=== PATIENT | male | born 1935 | race Caucasian/White ===

== ENCOUNTER 2022-02-19 20:57 | Observation (INO) | payer MEDICARE, SELFPAY ==
[2022-02-19 20:59] VITALS: BP 165/88; PULSE 98; RESP 16; TEMP 37.2; O2SAT 97; BMI 23.1
[2022-02-19] MEDS: Morphine 2 MG/ML Syringe IV (21:44)
[2022-02-19 21:54] LABS: Absolute Lymphocyte Count 0.99 X10^3/uL (0.83-4.51); Absolute Neutrophil Count 9.9 X10^3/uL (2.0-7.7); Basophil# 0.03 X10^3/uL; Basophil% 0.3 % (0-1); Hematocrit 37.4 % (40-54); Hemoglobin 12.7 g/dL (13.0-16.5); Lymphocyte # 0.99 X10^3/ul (0.83-4.51); Lymphocyte % 8.3 % (19-41); Mean Corpuscular Hgb 32.3 pg (27.0-32.0); Mean Corpuscular Volume 95.2 fL (80-94); Mean Platelet Vol. 9.4 fl (6.2-12.0); Monocyte# 0.98 X10^3/uL; Monocyte% 8.2 % (0-10); NRBC Flagged by Analyzer 0 % (0-5); Neutrophil # 9.94 X10^3/uL (2.7-7.7); Neutrophil % 82.7 % (47-70); Platelet Count 255 K/mm3 (150-450); RBC Distribution Width CV 13.2 % (11.6-14.6); RBC Distribution Width SD 46.3 fl (35.1-43.9); Red Blood Count 3.93 M/mm3 (4.6-6.2)
[2022-02-19 22:07] LABS: Anion Gap 5 (5-15); BUN 23 mg/dL (7-18); BUN/Creat Ratio 28.2 RATIO (10-20); Chloride 103 mmol/L (98-107); Creatinine, Serum 0.82 mg/dL (0.70-1.30); EST Glomerular Filtration Rate 95 mL/min (>60); Est Glom Filt Rate - Afr Amer 115 mL/min (>60); Estimated Creatinine Clearance 63.72 ml/min; Glucose 144 mg/dL (74-106); Potassium 3.8 mmol/L (3.5-5.1); Sodium Level 137 mmol/L (136-145)
--- NOTE | 2022-02-19 22:10 | RAD_ITS ---
EXAM: XR LEFT HIP WITH PELVIS WHEN PERFORMED, 2 OR 3 VIEWS CLINICAL INDICATION: injury/fall TECHNIQUE: Two or three views of the left hip with pelvis when performed. This report was created using [employer] report [employer] technology. COMPARISON: None. FINDINGS: BONES/JOINTS: Slight angulation at the superior head neck junction of the left hip. Mild degenerative changes of the hips bilaterally. Marked degenerative changes in the lumbar spine. No displaced fracture. No destructive or sclerotic lesions. Note that overlapping bowel shadows may however obscure fine detail. Sacroiliac joint is unremarkable. No widening of the pubic symphysis. SOFT TISSUES: Unremarkable. No soft tissue swelling or gas. RAD/HIP, UNI W/ Pelvis 2-3 Views IMPRESSION: 1. Slight angulation at the superior head neck junction of the left hip. I cannot exclude an impacted fracture. Consider CT. 2. Mild degenerative changes of the hips bilaterally. Electronically Signed: Kevin Rae MD at 22:53 EDT ,
[2022-02-19 23:00] VITALS: BP 171/89; PULSE 91; RESP 20; O2SAT 93
[2022-02-20] VITALS (12 sets, daily range): BP systolic 130–180; BP diastolic 63–88; PULSE 81–132; RESP 16–20; TEMP 36.6–38.2; O2SAT 93–98; BMI 20.8
--- NOTE | 2022-02-20 00:03 | CT_ITS ---
EXAM: CT LEFT LOWER EXTREMITY WITHOUT INTRAVENOUS CONTRAST CLINICAL INDICATION: L hip injury, abn XR TECHNIQUE: Helically acquired images were obtained of the left lower extremity without intravenous contrast. 2-D reformats were performed by the technologist. This CT exam was performed using one or more of the following dose reduction techniques: automated exposure control, adjustment of the mA and/or kV according to patient size, and/or use of iterative reconstruction technique. This report was created using [employer] report generation technology. RADIATION DOSE: CTDIvol = 12.07 mGy, DLP = 379.71 mGy-cm. COMPARISON: None. FINDINGS: BONES/JOINTS: Nondisplaced left greater trochanter fracture. Preservation of the joint space. No sclerotic or destructive changes. SOFT TISSUES: Unremarkable. No soft tissue swelling or gas. No radiopaque foreign body. CT/Extremity Lower without Contra IMPRESSION: Nondisplaced left greater trochanter fracture. No definite femoral neck fracture. Electronically Signed: Kevin Rae MD at 0:40 EDT ,
--- NOTE | 2022-02-20 01:06 | HP.PCM.HOS_ITS ---
HPI - General General Date of Admission: 02/20/22 Date of Service: 02/20/22 Chief Complaint: Fall HPI Narrative SABINE CISSE, is a 86 M with a significant medical history of microcytic anemia and osteoarthritis who presents to the emergency department with a fall. Reportedly patient was too weak so he fell on his left hip. His son helped patient get up from the floor after the fall. At baseline patient uses a walker for mobility. After the fall he was able to get around but at the day progressed he had excruciating pain as so he could not walk. Paramedics were called and patient was brought to the emergency department. [facility] Medical History (Updated 02/20/22 @ 01:[address] Luis Miguel Rodas MD) Microcytic anemia Osteoarthritis Medical History no medical history Home Medications NK 02/19/22 [History Last Taken Unknown] Allergy/AdvReac Type Severity Reaction Status Date / Time No Known Allergies Allergy Verified 10/08/13 23:26 Family History (Updated 02/20/22 @ 01:[address] Luis Miguel Rodas MD) Other Heart disease Surgical History H/O hernia repair History of prostate surgery Social History Smoking Status: Never smoker ROS ROS Narrative Pertinent positives and pertinent negatives as noted in HPI. All other systems were reviewed and are negative. Vital Signs Vital Signs Vital Signs: 02/19/22 20:59 02/19/22 21:05 02/19/22 23:00 Temperature 99.0 F Temperature Source Oral Pulse Rate 98 91 Respiratory Rate 16 20 H Respiratory Effort Normal Non-Labored Respiratory Depth Normal Respiratory Pattern Normal Blood Pressure 165/88 H 171/89 H Blood Pressure Mean 113 116 Pulse Ox 97 93 Oxygen Delivery Method Room Air Room Air Room Air Weight Weight: 68.8 kg Body Mass Index (BMI) 23.1 Physical Exam Narrative Physical exam: General: Well-nourished, well-developed. Head: Normocephalic, atraumatic, no tenderness Eyes: Vision is grossly intact. EOMI ENT, no trauma, moist mucous membranes, no rhinorrhea Neck: Nontender, full range of motion, no spinal tenderness, deformities, step- off CVS: Regular rate and rhythm. S1-S2 present. No murmur, gallop or rub. Respiratory : clear to auscultation bilaterally, chest wall nontender, no wheezing Abdomen: Soft, nontender, nondistended, normal bowel sounds, no masses : Deferred Back: Nontender, no CVA tenderness, no midline spinal tenderness, deformities, step-offs Extremities: Nontender right hip. Tender left hip. Good strength in the right hip. Left hip strength not tested secondary to fracture. Skin: Normal color, no trauma, abrasions Neuro: Alert, oriented, cranial nerves II through XII grossly intact. Psychiatry: Normal mood. Normal affect. Not depressed. Not anxious. Results Medical Records Data Attestation: I reviewed the patient's medical records Lab / Micro Data Attestation: I reviewed the patient's lab results. Result Diagrams: 02/19/22 21:45 02/19/22 21:45 Labs: Laboratory Results - last 24 hr 02/19/22 21:45: WBC 12.0 H, RBC 3.93 L, Hgb 12.7 L, Hct 37.4 L, MCV 95.2 H, MCH 32.3 H, MCHC 34.0, RDW Std Deviation 46.3 H, RDW Coeff of Krunal 13.2, Plt Count 255, MPV 9.4, Immature Gran % (Auto) 0.500, Neut % (Auto) 82.7 H, Lymph % (Auto) 8.3 L, [place]idan % (Auto) 8.2, Eos % (Auto) 0.0, Baso % (Auto) 0.3, Absolute Neuts (auto) 9.9 H, Absolute Lymphs (auto) 0.99, Nucleated RBC % 0 02/19/22 21:45: Sodium 137, Potassium 3.8, Chloride 103, Carbon Dioxide 29.0, Anion Gap 5, BUN 23 H, Creatinine 0.82, Estim Creat Clear Calc 63.72, Est GFR (MDRD) Af Amer 115, Est GFR (MDRD) Non-Af 95, BUN/Creatinine Ratio 28.2 H, Glucose 144 H, Calcium 9.0 Radiology Impression Hip/Pelvis X-Ray 02/19/22 22:10 IMPRESSION: 1. Slight angulation at the superior head neck junction of the left hip. I cannot exclude an impacted fracture. Consider CT. 2. Mild degenerative changes of the hips bilaterally. Electronically Signed: Kevin Rae MD at 22:53 EDT , Lower Extremity CT 02/20/22 00:03 IMPRESSION: Nondisplaced left greater trochanter fracture. No definite femoral neck fracture. Electronically Signed: Kevin Rae MD at 0:40 EDT , Assessment & Plan Assessment/Plan (1) Hip fracture, left: (2) Greater trochanter fracture: (3) Elevated blood pressure reading without diagnosis of hypertension: PLAN: Plan Greater trochanteric fracture of left hip. Hip and pelvis x-ray radiologist interpretation as above. Lower extremity CT was visualized and independently interpreted and I agree with radiologist interpretation of nondisplaced left greater trochanteric fracture with no definite femoral neck fracture. Emergency plan doctor discussed the case with Dr. Cesar Ureña, orthopedic surgeon who reportedly recommended that MRI of left hip be obtained. If MRI is negative no need to consult orthopedic surgeon for recommendations. Partial weightbearing as tolerated and therapy. MRI left hip ordered. For now no weightbearing on left hip. PT and OT to work with patient. Case management consult for disposition. Pain control with as needed acetaminophen, oxycodone, and IV morphine. Bowel protocol and antiemetics in place. Mild leukocytosis of 12.0; chronic anemia with hemoglobin of 12.7 which is actually improved from previous. Trend CBC. Check vitamin B12 and vitamin D. Elevated blood pressure without diagnosis of hypertension May be secondary to pain. However cannot rule out baseline hypertension. Treat pain. Trend blood pressures. DVT prophylaxis: Subcutaneous Lovenox ordered. Charges/Coding Visit Charges OBSV E&M: 54208 Initial observation care L3
--- NOTE | 2022-02-20 01:14 | EDS_ITS ---
HPI HPI - Fall History of Present Illness Chief Complaint: Fall Informant: patient and family Occured/Mechanism Occurred: Today Mechanism/Context: Yes same level fall and Yes trip Narrative: Patient thinks he tripped using his walker earlier today Usually ambulates: Walker Pain/Injury Location: Left hip Quality of Pain: Aching Current Severity: Mild Maximum Severity: Severe Worsened by: Trying to weight-bear Relieved by: Resting and remaining still Associated Symptoms Associated Symptoms: Positive for Inability to ambulate; Negative for Parasthesias, Weakness or Loss of consciousness Narrative Narrative: Patient fell at home using his walker. He states initially he was able to get up and stand and walk to the bathroom, but shortly thereafter he was no longer able to because of the pain in his left hip. He denies any other injury or hitting his head. He takes no medications at home. [facility] Medical History (Updated 02/20/22 @ 01:[address] David Melgar MD) Microcytic anemia Osteoarthritis Medical History no medical history Home Medications NK 02/19/22 [History Last Taken Unknown] Allergy/AdvReac Type Severity Reaction Status Date / Time No Known Allergies Allergy Verified 10/08/13 23:26 Surgical History (Updated 02/19/22 @ 21:04 by Kylah Rao) H/O hernia repair Social History Smoking Status: Never smoker ROS ROS ED Constitutional Constitutional ED: Denies chills or fever(s) Eyes Eyes: Denies change in vision or diplopia ENT ENT ED: Denies rhinorrhea or sore throat Cardiovascular Cardiovascular: Denies chest pain or palpitations Respiratory/Chest Respiratory/Chest: Denies cough or dyspnea Gastrointestinal Gastrointestinal: Denies abdominal pain, diarrhea, nausea or vomiting Genitourinary Genitourinary ED: Denies dysuria or hematuria Musculoskeletal Musculoskeletal: Reports extremity pain; Denies back pain or neck pain Integumentary Denies abscess or rash Neurologic Neurologic: Denies headache(s), paresthesias or weakness Psychiatric Psychiatric: Denies anxiety or suicidal thoughts EXAM Physical Exam Const Vital Signs: 02/19/22 20:59 02/19/22 21:05 02/19/22 23:00 Temperature 99.0 F Temperature Source Oral Pulse Rate 98 91 Respiratory Rate 16 20 H Respiratory Effort Normal Non-Labored Respiratory Depth Normal Respiratory Pattern Normal Blood Pressure 165/88 H 171/89 H Blood Pressure Mean 113 116 Pulse Ox 97 93 Oxygen Delivery Method Room Air Room Air Room Air Positive well nourished and well developed General Appearance ED: well developed and NAD HEENT Reports moist mucous membranes normocephalic and atraumatic Eyes PERRL and EOMs intact bilaterally Neck full ROM and supple Resp normal respiratory effort and clear to auscultation bilaterally Cardio regular rate, regular rhythm and no murmurs GI non-tender and non-distended Auscultation: normoactive bowel sounds Palpation: soft Back/Spine no CVA tenderness General Back: other FROM Extremity normal to inspection Extremity Narrative: Patient very tender at the left greater trochanter, significant pain with any range of motion involving the left hip. No deformities. Nontender throughout the rest of the femur and knee rest of his extremities are nontender with full range of motion. He does have some limited range of motion of the right knee due to some arthritis but he is able to range it. General Extremety ED: Yes tenderness; Negative for edema or pulses abnormal General Extremity: Negative for edema or pulses abnormal Neuro oriented x3, CN's II-XII intact bilaterally and no sensory deficits noted Sensorium / Orientation: awake and alert Motor Exam: strength 5/5 throughout Psych mental status grossly normal and thought process normal Skin no rashes or lesions noted and no wounds MDM MDM MDM Narrative Medical decision making narrative: High suspicion for hip fracture here. X-rays initially 3 views my interpretat ion appears show a crack through the greater trochanter, difficult to tell if the femoral head also has a fracture or not. Radiology recommended a CT because they agreed it was difficult to tell. CT appears to show a nondisplaced left greater trochanter fracture only. Patient is unable to bear weight on his left lower extremity or walk and will require admission. I discussed with Dr. Cesar Ureña who was on for orthopedics, he advised that if he simply has a greater trochanter fracture only, then it is partial weightbearing as tolerated with outpatient follow-up in a week or 2, and if he is unable to weight-bear, an MRI would be reasonable in order to rule out other fracture in the area such as a femoral neck or intertrochanteric, which could be surgical and then consultation would be appropriate inpatient. Discussed with hospitalist for admission. Patient was given pain medication and he was resting comfortably throughout the visit. Lab Data Attestation: I reviewed the patient's lab results. Labs: Laboratory Results - last 24 hr 02/19/22 02/19/22 21:45 21:45 WBC 12.0 H RBC 3.93 L Hgb 12.7 L Hct 37.4 L MCV 95.2 H MCH 32.3 H MCHC 34.0 RDW Std Deviation 46.3 H RDW Coeff of Krunal 13.2 Plt Count 255 MPV 9.4 Immature Gran % (Auto) 0.500 Neut % (Auto) 82.7 H Lymph % (Auto) 8.3 L [place] % (Auto) 8.2 Eos % (Auto) 0.0 Baso % (Auto) 0.3 Absolute Neuts (auto) 9.9 H Absolute Lymphs (auto) 0.99 Nucleated RBC % 0 Sodium 137 Potassium 3.8 Chloride 103 Carbon Dioxide 29.0 Anion Gap 5 BUN 23 H Creatinine 0.82 Estim Creat Clear Calc 63.72 Est GFR (MDRD) Af Amer 115 Est GFR (MDRD) Non-Af 95 BUN/Creatinine Ratio 28.2 H Glucose 144 H Calcium 9.0 Radiography Diagnostic Testing: Clinical Impression(s) from Imaging Studies Hip/Pelvis X-Ray 02/19/22 22:10 IMPRESSION: 1. Slight angulation at the superior head neck junction of the left hip. I cannot exclude an impacted fracture. Consider CT. 2. Mild degenerative changes of the hips bilaterally. Electronically Signed: Kevin Rae MD at 22:53 EDT , Lower Extremity CT 02/20/22 00:03 IMPRESSION: Nondisplaced left greater trochanter fracture. No definite femoral neck fracture. Electronically Signed: Kevin Rae MD at 0:40 EDT , Discharge Plan Triage Chief Complaint: Fall ED Provider: David Melgar Dx/Rx/DC Orders Prescriptions: No Action NK Primary Care Provider: Care Physician,No Primary Referrals: Care Physician,No Primary [Primary Care Provider] - Disposition Disposition: Acute Care Hospital [facility]
--- NOTE | 2022-02-20 02:07 | MRI_ITS ---
HISTORY: Left hip fracture. TECHNIQUE: Multiplanar and multisequence MR images of the LEFT hip. IV Contrast Dosage and Agent: None. 233 images. COMPARISON: CT same day, XR prior day. FINDINGS: BONE: Comminuted and nondisplaced fracture of the right greater trochanter with mild subtrochanteric extension of surrounding bone marrow edema. Bone marrow edema also seen in the left lesser trochanter. Mild lumbar levocurvature. JOINT: Moderate degenerative changes of both hips.] No dislocation. Trace amount of joint fluid. TENDONS: Partial hamstring and iliopsoas tendon tears. SOFT TISSUES: Large amount of surrounding intramuscular and subcutaneous edema with gluteal musculotendinous tear, surrounding fluid and some retracted fibers. Mild bilateral iliacus muscular edema. Mild left adductor, groin, and proximal thigh intramuscular and subcutaneous changes edema. PELVIS: Mild presacral edema and fluid with edema extending into the left pelvic intramuscular soft tissues. Aggarwal catheter decompression of the bladder with a prominent wall. Enlarged prostate gland. Sigmoid diverticulosis. MRI/Lower Ext Joint Only (Routine) IMPRESSION: Nondisplaced fracture of the left greater trochanter with bone marrow contusion in the proximal left femur. Left gluteal musculotendinous tear with a large amount of intramuscular edema, fluid, and retracted tendon fibers. Left partial hamstring and iliopsoas tendon tears. Electronically Signed: Kaylah Chaudhary MD at 10:27 EDT ,
[2022-02-20] MEDS: Morphine 2 MG/ML Syringe IV ×4 (02:52→18:01)
[2022-02-20] MEDS: 0.9% Saline Lock 10 ML Syringe IV ×5 (02:52→18:01)
[2022-02-20 04:48] LABS: Absolute Lymphocyte Count 1.23 X10^3/uL (0.83-4.51); Absolute Neutrophil Count 7.7 X10^3/uL (2.0-7.7); Basophil# 0.03 X10^3/uL; Basophil% 0.3 % (0-1); Eosinophil# 0.03 X10^3/uL; Eosinophils% 0.3 % (0-5); Hematocrit 36.4 % (40-54); Hemoglobin 12.6 g/dL (13.0-16.5); Lymphocyte # 1.23 X10^3/ul (0.83-4.51); Lymphocyte % 12.5 % (19-41); Mean Corp Hgb Conc 34.6 g/dL (32-36); Mean Corpuscular Volume 95.3 fL (80-94); Mean Platelet Vol. 9.6 fl (6.2-12.0); Monocyte# 0.81 X10^3/uL; Monocyte% 8.2 % (0-10); NRBC Flagged by Analyzer 0 % (0-5); Neutrophil % 78.3 % (47-70); Platelet Count 240 K/mm3 (150-450); RBC Distribution Width CV 13.2 % (11.6-14.6); RBC Distribution Width SD 46.3 fl (35.1-43.9); Red Blood Count 3.82 M/mm3 (4.6-6.2); White Blood Count 9.8 K/mm3 (4.4-11.0)
--- NOTE | 2022-02-20 05:00 | EKG12_ITS ---
Test Reason : CHEST PRESSURE Blood Pressure : / mmHG Vent. Rate : 128 BPM Atrial Rate : 128 BPM P-R Int : 156 ms QRS Dur : 100 ms QT Int : 304 ms P-R-T Axes : 045 022 -31 degrees QTc Int : 443 ms Sinus tachycardia Inferior infarct , age undetermined ST & T wave abnormality, consider lateral ischemia Abnormal ECG When compared with ECG of 20-FEB-2022 05:37, MANUAL COMPARISON REQUIRED, DATA IS UNCONFIRMED Confirmed by JIMENA AL, WEST ([id number]), mapping editor SELAM FALL ([id number]) on 02/22/2022 12:58:24 PM Referred By: JENNIFER Confirmed By:WEST HESS MD
[2022-02-20 05:07] LABS: Anion Gap 6 (5-15); BUN 16 mg/dL (7-18); Calcium,Total 8.7 mg/dL (8.5-10.1); Chloride 104 mmol/L (98-107); Creatinine, Serum 0.62 mg/dL (0.70-1.30); EST Glomerular Filtration Rate 132 mL/min (>60); Est Glom Filt Rate - Afr Amer 160 mL/min (>60); Estimated Creatinine Clearance 47.57 ml/min; Glucose 131 mg/dL (74-106); Potassium 3.8 mmol/L (3.5-5.1); Sodium Level 139 mmol/L (136-145)
[2022-02-20 07:41] LABS: Vitamin B12 335 pg/mL (211-911); Vitamin D,25 Hydroxy 38.7 ng/mL
--- NOTE | 2022-02-20 07:59 | PN.HOSP_ITS ---
Subjective Subjective Patient is an 86-year-old gentleman brought to the hospital after falling. CT of the chest obtained demonstrated nondisplaced left greater trochanteric fracture with no definite femoral neck fracture. This was confirmed on an MRI. Admitted to regular nursing floor for further management Objective Data Objective Data Vital Signs: Vital Signs Temp Pulse Resp BP Pulse Ox O2 Del Method 98 F 94 18 153/88 H 93 Room Air 02/20/22 05:53 02/20/22 05:53 02/20/22 05:53 02/20/22 05:53 02/20/22 05:53 02/20/22 05:53 Oxygen Delivery Method Room Air Weight: 62.278 kg Body Mass Index (BMI) 20.8 Intake & Output: Intake and Output for Last 24 Hours 02/18/22 02/19/22 02/20/22 23:59 23:59 23:59 Output Total 650 / 650 Balance -650 / -650 Lab / Micro Data Result Diagrams: 02/20/22 04:19 02/20/22 04:19 Labs: Laboratory Results - last 24 hr 02/19/22 21:45: WBC 12.0 H, RBC 3.93 L, Hgb 12.7 L, Hct 37.4 L, MCV 95.2 H, MCH 32.3 H, MCHC 34.0, RDW Std Deviation 46.3 H, RDW Coeff of Krunal 13.2, Plt Count 255, MPV 9.4, Immature Gran % (Auto) 0.500, Neut % (Auto) 82.7 H, Lymph % (Auto) 8.3 L, [place] % (Auto) 8.2, Eos % (Auto) 0.0, Baso % (Auto) 0.3, Absolute Neuts (auto) 9.9 H, Absolute Lymphs (auto) 0.99, Nucleated RBC % 0 02/19/22 21:45: Sodium 137, Potassium 3.8, Chloride 103, Carbon Dioxide 29.0, Anion Gap 5, BUN 23 H, Creatinine 0.82, Estim Creat Clear Calc 63.72, Est GFR (MDRD) Af Amer 115, Est GFR (MDRD) Non-Af 95, BUN/Creatinine Ratio 28.2 H, Glucose 144 H, Calcium 9.0 02/20/22 04:19: WBC 9.8, RBC 3.82 L, Hgb 12.6 L, Hct 36.4 L, MCV 95.3 H, MCH 33.0 H, MCHC 34.6, RDW Std Deviation 46.3 H, RDW Coeff of Krunal 13.2, Plt Count 240, MPV 9.6, Immature Gran % (Auto) 0.400, Neut % (Auto) 78.3 H, Lymph % (Auto) 12.5 L, Preston % (Auto) 8.2, Eos % (Auto) 0.3, Baso % (Auto) 0.3, Absolute Neuts ( auto) 7.7, Absolute Lymphs (auto) 1.23, Nucleated RBC % 0 02/20/22 04:19: Sodium 139, Potassium 3.8, Chloride 104, Carbon Dioxide 29.0, Anion Gap 6, BUN 16, Creatinine 0.62 L, Estim Creat Clear Calc 47.57, Est GFR (MDRD) Af Amer 160, Est GFR (MDRD) Non-Af 132, BUN/Creatinine Ratio 26.0 H, Glucose 131 H, Calcium 8.7 02/20/22 04:19: Vitamin B12 335, Vitamin D 25-Hydroxy 38.7 02/20/22 04:19: Blood Type A POSITIVE, Antibody Screen NEGATIVE Radiography Diagnostic Testing: Radiology Impression Hip/Pelvis X-Ray 02/19/22 22:10 IMPRESSION: 1. Slight angulation at the superior head neck junction of the left hip. I cannot exclude an impacted fracture. Consider CT. 2. Mild degenerative changes of the hips bilaterally. Electronically Signed: Kevin Rae MD at 22:53 EDT Reading Location ID and State: [id number] [facility] Tel , Service support , Lower Extremity CT 02/20/22 00:03 IMPRESSION: Nondisplaced left greater trochanter fracture. No definite femoral neck fracture. Electronically Signed: Kevin Rae MD at 0:40 EDT , Physical Exam Narrative GENERAL: cooperative HEENT: Atraumatic; EYES; Anicteric, Normal Conjunctiva NECK; supple, normal thyroid, RESPIRATORY: Diminished to auscultation CARDIOVASCULAR: Regular S1 S2, GI: soft, normoactive bowel sounds, : No Renal angle tenderness; EXTREMITIES: No edema, no clubbing, MUSCULOSKELETAL: no muscle wasting NEURO: Awake; no lateralizing signs. SKIN: No Rash PSYCH; Flat affect Assessment & Plan Assessment/Plan (1) Hip fracture, left: (2) Greater trochanter fracture: (3) Elevated blood pressure reading without diagnosis of hypertension: PLAN: Plan Patient is an 86-year-old gentleman brought to the hospital after falling. CT of the chest obtained demonstrated nondisplaced left greater trochanteric f racture with no definite femoral neck fracture. This was confirmed on an MRI. Admitted to regular nursing floor for further management 1. Fall with nondisplaced left greater trochanteric fracture with no definitive femoral neck fracture ? Patient has been admitted to regular nursing floor. Case was discussed with Dr. Cesar Ureña by the ED physician prior to admission history recommendation was to repeat MRI and if it shows no displacement no Ortho consult warranted. Patient has been admitted to the regular nursing floor currently being managed with PT OT. Did update patient's son regarding the findings and recommendations from Dr. Cesar Ureña 2. Elevated blood pressure ? Possibly related to pain patient does not have any known diagnosis of hypertension 3. Mild leukocytosis ? Resolved 4. DVT prophylaxis ? SC Lovenox Total time spent evaluating patient review of initial diagnostic data coder operator orders as well as discussion with other providers involved in patient care nursing staff and patient signed; 45 minutes Charges/Coding Procedures Hospitalists Procedures: [id number] Prolonged InPt Service; first hour
[2022-02-20] MEDS: oxyCODONE 5 MG Tablet 10 MG PO ×2 (13:17→19:59)
[2022-02-20] MEDS: Enoxaparin 40 MG/0.4 ML Syringe SC (13:18)
--- NOTE | 2022-02-20 14:24 | CASEMGMT ---
MADDISON GARCIA Assessment: Face to Face with pt for initial transition planning/care coordination assessment. MADDISON GARCIA introduced self and role at [facility], pt voices understanding and consents to assessment. Unable to keep patient awake and answering questions. Asked pt if RN RADHA could call his , he states she will forget. Pt then did not answer any further questions and kept eyes closed. TC to pt number, number no longer in service. TC to pt son Tyrone listed. Tyrone asks RN CM to call his to get Moreno's, his brother's phone number. TC to his and she gave Marjocelyn's number. TC to Moreno, assessment completed per Moreno. Care providers, pharmacy, and demographics verified/updated. Admitting Dx: L greater trochanter fx PCP:Pt does not have PCP. Will provide local healthcare directory and leave on pt tray table. Moreno aware. Specialists:Pt does not have any. Preferred Pharmacy: [facility] Insurance: [employer] [facility] Prescription Benefit: yes LW/HPOA: Pt son denies pt having a LW/DPOA and denies need for info regarding AD. LNOK: Adrianne Mccallum, ; Tyrone Mccallum, son; Moreno Mccallum, son Living Arrangements: Pt lives with and son in a single story house with 2 steps to enter with a rail. Moreno states pt was I in ADL's prior to fall but was almost getting to the point of needing help. Transportation: Pt was driving up to a week ago. Pt son states he can provide transportation if need be in the future. DME/HHC/SNF: Per son, pt has a FWW that he uses in the home and a cane he uses outside of the home. Pt has not had any previous HHC or SNF stays. Moreno states pt does not take any medications. Pt son is the caregiver for pt and his who has s/t memory loss although he does work 5 days a week. He states after pt fell, he was hardly able to get the patient to the bathroom. He states he was thinking that pt could get some therapy for approx a week until he could hire cg in the home. Moreno was provided a list of SNF providers including quality and resource use data and consistent with the patient?s preferred geographic region, medical needs, and insurance network of patient. He states his mother has been to [facility] in the past and he thinks that is where he would like the patient to go. He states he would like to speak with his family regarding this. He is aware that therapy has not worked with patient yet but currently pt is needing 2 assist for pivoting. RN CM will check back with patient. Pt son states no further concerns/needs. Advised pt to ask CM if any further question/concerns/needs arise, voices understanding. Pt Goal: TBD Plan: TBD
--- NOTE | 2022-02-20 16:15 | CASEMGMT ---
Addendum entered by Merle Jerome 02/20/22 16:25: Received tc back from son, MADDISON Mayer CM explained LORENZO form, patient son voiced understanding. Pt son gave verbal consent for signature on form and filed in chart. Pt provided with a copy of signed LORENZO form in room. Patient son had no further questions or concerns at this time. Pt son did stated he has spoke with family and they picked [facility] TCU. Updated SW. SW also witnessed verbal consent on LORENZO form from son. Original Note: TC to pt son Moreno Fengtler, phone went straight to . MADDISON GARCIA needs to discuss LORENZO form with son as well as decision after him speaking with family. Left message with returned call info.
--- NOTE | 2022-02-20 16:25 | CASEMGMT ---
Social Work SW spoke with pts son Moreno who states he has spoke with his family and they feel pt would benefit from short term rehab stay in TCU prior to returning home. Referral made to [facility] in TCU. Will await determination of acceptance. Plan: TCU, pending acceptance and precert HUONG Mendosa
[2022-02-20] MEDS: hydrALAZINE 20 MG/ML Vial 10 MG IV (17:23)
--- NOTE | 2022-02-20 18:12 | EKG12_ITS ---
Test Reason : AM EKG Blood Pressure : / mmHG Vent. Rate : 094 BPM Atrial Rate : 094 BPM P-R Int : 176 ms QRS Dur : 100 ms QT Int : 354 ms P-R-T Axes : 057 037 028 degrees QTc Int : 442 ms Normal sinus rhythm Normal ECG When compared with ECG of 10-OCT-2013 07:07, Premature ventricular complexes are no longer Present Confirmed by JIMENA AL, WEST ([id number]), material expeditor SELAM FALL ([id number]) on 02/21/2022 11:14:10 AM Referred By: JENNIFER Confirmed By:WEST HESS MD
[2022-02-20 18:25] LABS: Bedside Glucose 123 mg/dL (74-106)
[2022-02-20] MEDS: Acetaminophen 325 MG Tablet 650 MG PO (19:03)
[2022-02-20 19:40] LABS: D-Dimer Quantitative (DVT/PE) 3.02 FEU/ug/m (0.27-0.49)
--- NOTE | 2022-02-20 20:17 | CT_ITS ---
EXAM: CT ANGIOGRAPHY CHEST WITHOUT AND WITH INTRAVENOUS CONTRAST CLINICAL INDICATION: elevated Ddimer TECHNIQUE: Helically acquired angiography images were obtained of the chest without and with intravenous contrast. This CT exam was performed using one or more of the following dose reduction techniques: automated exposure control, adjustment of the mA and/or kV according to patient size, and/or use of iterative reconstruction technique. This report was created using Pitzi report generation technology. MIP reconstructed images were created and reviewed. CONTRAST: IV 100mL Isovue-370 COMPARISON: None. FINDINGS: PULMONARY ARTERIES: Unremarkable. Normal in caliber. No evidence of pulmonary embolism. AORTA: Unremarkable. Normal in caliber. No evidence of dissection. GREAT VESSELS OF AORTIC ARCH: Unremarkable. Normal in caliber. No evidence of dissection. LUNGS AND PLEURAL SPACES: Unremarkable. No mass. No consolidation or edema. No pleural effusion or thickening. No pneumothorax. HEART: Unremarkable. Heart size is normal. No pericardial effusion. No signs of right heart strain, ratio of right ventricle to left ventricle measures less than 1. MEDIASTINUM: Moderate hiatal hernia. No mediastinal or hilar adenopathy. Esophagus is unremarkable. THYROID: Unremarkable. No thyroid lesions. BONES/JOINTS: Moderate osteoarthrosis of the shoulders. Right shoulder subluxation. Large right shoulder effusion. Left shoulder effusion. CT/CTA Chest W/WO Contrast IMPRESSION: No acute findings in the chest. Hiatal hernia. Bilateral shoulder osteoarthrosis and joint effusions. Electronically Signed: Vianney Gomez MD at 21:40 EDT Reading Location ID and State: [id number] / Tel , Service support ,
[2022-02-21 03:43] VITALS: BP 155/74; PULSE 103; RESP 18; TEMP 37.4; O2SAT 99
[2022-02-21] MEDS: Acetaminophen 325 MG Tablet 650 MG PO (03:50)
[2022-02-21] MEDS: oxyCODONE 5 MG Tablet 10 MG PO (03:50)
[2022-02-21 05:43] LABS: Absolute Lymphocyte Count 1.04 X10^3/uL (0.83-4.51); Basophil# 0.03 X10^3/uL; Basophil% 0.2 % (0-1); Hematocrit 37.8 % (40-54); Hemoglobin 12.9 g/dL (13.0-16.5); Lymphocyte # 1.04 X10^3/ul (0.83-4.51); Lymphocyte % 8.4 % (19-41); Mean Corp Hgb Conc 34.1 g/dL (32-36); Mean Corpuscular Hgb 32.4 pg (27.0-32.0); Mean Platelet Vol. 9.7 fl (6.2-12.0); Monocyte# 1.24 X10^3/uL; NRBC Flagged by Analyzer 0 % (0-5); Neutrophil # 10.04 X10^3/uL (2.7-7.7); Neutrophil % 80.8 % (47-70); Platelet Count 234 K/mm3 (150-450); RBC Distribution Width CV 13.5 % (11.6-14.6); RBC Distribution Width SD 47.3 fl (35.1-43.9); Red Blood Count 3.98 M/mm3 (4.6-6.2); White Blood Count 12.4 K/mm3 (4.4-11.0)
[2022-02-21 06:18] LABS: Anion Gap 6 (5-15); BUN 16 mg/dL (7-18); BUN/Creat Ratio 22.7 RATIO (10-20); Calcium,Total 8.5 mg/dL (8.5-10.1); Chloride 101 mmol/L (98-107); EST Glomerular Filtration Rate 113 mL/min (>60); Est Glom Filt Rate - Afr Amer 137 mL/min (>60); Estimated Creatinine Clearance 47.57 ml/min; Glucose 135 mg/dL (74-106); Potassium 3.7 mmol/L (3.5-5.1); Sodium Level 136 mmol/L (136-145)
[2022-02-21 07:25] VITALS: O2SAT 98
--- NOTE | 2022-02-21 07:26 | PCM.PN.HOSP ---
Subjective Subjective Patient was found to have elevated D-dimer the day prior CTA of the chest was negative for PE. He also had low-grade fever ordered viral respiratory panel as well as COVID 19 Objective Data Objective Data Vital Signs: Vital Signs Temp Pulse Resp BP Pulse Ox O2 Del Method O2 Flow Rate 99.3 F H 103 H 18 155/74 H 98 Nasal Cannula 2 02/21/22 03:43 02/21/22 03:43 02/21/22 03:43 02/21/22 03:43 02/21/22 07:25 02/21/22 07:25 02/21/22 07:25 Oxygen Flow Rate (L/min) 2 Oxygen Delivery Method Nasal Cannula Weight: 62.278 kg Body Mass Index (BMI) 20.8 Intake & Output: Intake and Output for Last 24 Hours 02/19/22 02/20/22 02/21/22 23:59 23:59 23:59 Intake Total 350 / 350 Output Total 1475 / 1475 250 / 250 Balance -1125 / -1125 -250 / -250 Lab / Micro Data Result Diagrams: 02/21/22 05:23 02/21/22 05:23 Labs: Laboratory Results - last 24 hr 02/20/22 04:19: Vitamin B12 335, Vitamin D 25-Hydroxy 38.7 02/20/22 18:08: POC Glucose 123 H 02/20/22 18:55: D-Dimer Quant (PE/DVT) 3.02 H* 02/21/22 05:23: WBC 12.4 H, RBC 3.98 L, Hgb 12.9 L, Hct 37.8 L, MCV 95.0 H, MCH 32.4 H, MCHC 34.1, RDW Std Deviation 47.3 H, RDW Coeff of Krunal 13.5, Plt Count 234, MPV 9.7, Immature Gran % (Auto) 0.600, Neut % (Auto) 80.8 H, Lymph % (Auto) 8.4 L, [place] % (Auto) 10.0, Eos % (Auto) 0.0, Baso % (Auto) 0.2, Absolute Neuts (auto) 10.0 H, Absolute Lymphs (auto) 1.04, Nucleated RBC % 0 02/21/22 05:23: Sodium 136, Potassium 3.7, Chloride 101, Carbon Dioxide 29.0, Anion Gap 6, BUN 16, Creatinine 0.70, Estim Creat Clear Calc 47.57, Est GFR (MDRD) Af Amer 137, Est GFR (MDRD) Non-Af 113, BUN/Creatinine Ratio 22.7 H, Glucose 135 H, Calcium 8.5 Radiography Diagnostic Testing: Radiology Impression Lower Extremity MRI 02/20/22 02:07 IMPRESSION: Nondisplaced fracture of the left greater trochanter with bone marrow contusion in the proximal left femur. Left gluteal musculotendinous tear with a large amount of intramuscular edema, fluid, and retracted tendon fibers. Left partial hamstring and iliopsoas tendon tears. Electronically Signed: Kaylah Chaudhary MD at 10:27 EDT , Chest CTA 02/20/22 20:17 IMPRESSION: No acute findings in the chest. Hiatal hernia. Bilateral shoulder osteoarthrosis and joint effusions. Electronically Signed: Vianney Gomez MD at 21:40 EDT , Physical Exam Narrative GENERAL: cooperative HEENT: Atraumatic; EYES; Anicteric, Normal Conjunctiva NECK; supple, normal thyroid, RESPIRATORY: Diminished to auscultation CARDIOVASCULAR: Regular S1 S2, GI: soft, normoactive bowel sounds, : No Renal angle tenderness; EXTREMITIES: No edema, no clubbing, MUSCULOSKELETAL: no muscle wasting NEURO: Awake; no lateralizing signs. SKIN: No Rash PSYCH; Flat affect Assessment & Plan Assessment/Plan (1) Hip fracture, left: (2) Greater trochanter fracture: (3) Elevated blood pressure reading without diagnosis of hypertension: PLAN: Plan Patient is an 86-year-old gentleman brought to the hospital after falling. CT of the chest obtained demonstrated nondisplaced left greater trochanteric fracture with no definite femoral neck fracture. This was confirmed on an MRI. Admitted to regular nursing floor for further management 1. Fall with nondisplaced left greater trochanteric fracture with no definitive femoral neck fracture ? Patient has been admitted to regular nursing floor. Case was discussed with Dr. Cesar Ureña by the ED physician prior to admission history recommendation was to repeat MRI and if it shows no displacement no Ortho consult warranted. Patient has been admitted to the regular nursing floor currently being managed with PT OT. Did update patient's son regarding the findings and recommendations from Dr. Cesar Ureña 2. Physical deconditioning - Requested for PT OT eval and clinical social worker to assist with discharge planning 3. Elevated blood pressure ? Possibly related to pain patient does not have any known diagnosis of hypertension ? 02/21/2022; patient started on metoprolol 25 mg p.o. twice daily 4. Mild leukocytosis ? Resolved 5. DVT prophylaxis ? GURINDER Gonsalez Charges/Coding Visit Charges OBSV E&M: 85338 Subsequent observation care L2
[2022-02-21 09:09] VITALS: O2SAT 85
[2022-02-21 09:13] VITALS: BP 143/73; PULSE 94; RESP 16; TEMP 37.3; O2SAT 100
[2022-02-21] MEDS: Enoxaparin 40 MG/0.4 ML Syringe SC (09:25)
--- NOTE | 2022-02-21 11:10 | CASEMGMT ---
Social Work SW spoke with [facility] in TCU and he has been accepted to TCU and precert has been started. MICHELLE will continue to follow for placement. HUONG Mendosa
[2022-02-21 11:30] VITALS: PULSE 94
[2022-02-21] MEDS: Metoprolol Tartrate 25 MG Tablet PO (11:30)
--- NOTE | 2022-02-21 13:36 | PCM.TXEXTCAR ---
Diet Diet Order/Speech Therapy: 02/20/22 02:07 Diet: Regular - General Food consistency:: Regular Liquid Consistency:: Regular/Thin Routine Orders/Code Status Code Status: DNRCC-A Wound(s) L elbow: Wound Type: Skin Tear Therapies Weight Bearing: Weight bearing as tolerated Occupational Therapy: Eval and Treat Speech Therapy: Eval and Treat Problem/Diagnosis (1) Hip fracture, left: Status: Acute Code(s): S72.002A - Fracture of unspecified part of neck of left femur, initial encounter for closed fracture (2) Greater trochanter fracture: Status: Acute Code(s): S72.113A - Displaced fracture of greater trochanter of unspecified femur, initial encounter for closed fracture (3) Elevated blood pressure reading without diagnosis of hypertension: Status: Acute Code(s): R03.0 - Elevated blood-pressure reading, without diagnosis of hypertension Plan Patient is an 86-year-old gentleman brought to the hospital after falling. CT of the chest obtained demonstrated nondisplaced left greater trochanteric fracture with no definite femoral neck fracture. This was confirmed on an MRI. Admitted to regular nursing floor for further management 1. Fall with nondisplaced left greater trochanteric fracture with no definitive femoral neck fracture ? Patient has been admitted to regular nursing floor. Case was discussed with Dr. Cesar Ureña by the ED physician prior to admission history recommendation was to repeat MRI and if it shows no displacement no Ortho consult warranted. Patient has been admitted to the regular nursing floor currently being managed with PT OT. Did update patient's son regarding the findings and recommendations from Dr. Cesar Ureña 2. Physical deconditioning - Requested for PT OT eval and high school social studies tutor to assist with discharge planning 3. Elevated blood pressure ? Possibly related to pain patient does not have any known diagnosis of hypertension ? 02/21/2022; patient started on metoprolol 25 mg p.o. twice daily 4. Mild leukocytosis ? Resolved 5. DVT prophylaxis ? SC Lovenox Allergies/Procedures Done in Hospital Allergies No Known Allergies Allergy (Verified 10/08/13 23:26) Type of Care/Length of Stay Estimated LOS: Convalescent Care Less Than 30 days Type of Care Needed: Skilled Rehab Potential: Good Prognosis: Good Additional Orders/Day of Discharge Day of Discharge: 02/21/22 Discharge Plan Admission Admit Date/Time: 02/20/22 00:56 Attending Provider: Tyrone Mixon Primary Care Provider: Care Physician,No Primary Consulting Providers: Luis Miguel Rodas ; Cesar Ureña Discharge Orders/Prescriptions Prescriptions: New sennosides-docusate sodium [Stool Softener-Stimulant Laxat] 8.6-50 mg Tablet 2 tab PO BID PRN PRN (Reason: Constipation) Qty: 0 0RF melatonin 3 mg Tablet 3 mg PO QHS PRN PRN (Reason: Insomnia) Qty: 0 0RF oxycodone 5 mg Tablet 5 mg PO Q4H PRN PRN (Reason: Pain Score 4-5) 2 Days Qty: 8 0RF metoprolol tartrate 25 mg Tablet 25 mg PO BID Qty: 0 0RF acetaminophen [Tylenol] 325 mg Tablet 650 mg PO Q6H PRN PRN (Reason: Pain Score 1-10/Temp > 100.7 F) Qty: 0 0RF enoxaparin 40 mg/0.4 mL Syringe 40 mg subcut DAILY 30 Days Qty: 0 0RF Referrals / Follow Up: Care Physician,No Primary [Primary Care Provider] -
--- NOTE | 2022-02-21 13:45 | DS.PCM_ITS ---
Providers Date of Admission: 02/20/22 Date of Discharge: 02/21/22 Primary Care Physician: Rizwana Primary Care Phys Consultations 02/20/22 11:43 Consult: Orthopedics Routine Consulting Provider: Cesar Ureña Reason for Consult: left greater trochanter fracture EMERGENT Consult: No MD Notified: Yes Date Notified: 02/20/22 Time Notified: 11:43 Method of Notification: spoke to by ER doc Reason For Visit: LEFT GREATER TROCHANTER FRACTURE Diagnosis Discharge Diagnosis (1) Hip fracture, left: Status: Acute Code(s): S72.002A - Fracture of unspecified part of neck of left femur, initial encounter for closed fracture (2) Greater trochanter fracture: Status: Acute Code(s): S72.113A - Displaced fracture of greater trochanter of unspecified femur, initial encounter for closed fracture (3) Elevated blood pressure reading without diagnosis of hypertension: Status: Acute Code(s): R03.0 - Elevated blood-pressure reading, without diagnosis of hypertension Medications at Discharge Home Medications acetaminophen 325 mg tablet (Tylenol) 650 mg PO Q6H PRN PRN Pain Score 1-10/Temp > 100.7 F #0 tabs 02/21/22 enoxaparin 40 mg/0.4 mL subcutaneous syringe 40 mg (0.4 mL) subcut DAILY 30 days #0 mL 02/21/22 melatonin 3 mg tablet 3 mg PO QHS PRN PRN Insomnia #0 tabs 02/21/22 metoprolol tartrate 25 mg tablet 25 mg PO BID #0 tabs 02/21/22 oxycodone 5 mg tablet 5 mg PO Q4H PRN PRN Pain Score 4-5 2 days #8 tabs 02/21/22 sennosides 8.6 mg-docusate sodium 50 mg tablet (Stool Softener-Stimulant Laxative) 2 tab PO BID PRN PRN Constipation #0 tabs 02/21/22 Hospital Course Summary of Care Provided Minutes Spent on Discharge: 35 Hospital Course: Patient is an 86-year-old gentleman brought to the hospital after falling. CT of the chest obtained demonstrated nondisplaced left greater trochanteric fracture with no definite femoral neck fracture. This was confirmed on an MRI. Admitted to regular nursing floor for further management 1. Fall with nondisplaced left greater trochanteric fracture with no definitive femoral neck fracture ? Patient has been admitted to regular nursing floor. Case was discussed with Dr. Cesar Ureña by the ED physician prior to admission history recommendation was to repeat MRI and if it shows no displacement no Ortho consult warranted. Patient has been admitted to the regular nursing floor currently being managed with PT OT. Did update patient's son regarding the findings and recommendations from Dr. Cesar Ureña 2. Physical deconditioning - Requested for PT OT eval and social worker palliative care to assist with discharge planning -She was discharged to the transitional care unit once bed was obtained following Insurance precertification 3. Elevated blood pressure ? Possibly related to pain patient does not have any known diagnosis of hypertension ? 02/21/2022; patient started on metoprolol 25 mg p.o. twice daily 4. Mild leukocytosis ? Resolved 5. DVT prophylaxis ? SC Lovenox Physical Exam Narrative GENERAL: cooperative HEENT: Atraumatic; EYES; Anicteric, Normal Conjunctiva NECK; supple, normal thyroid, RESPIRATORY: Diminished to auscultation CARDIOVASCULAR: Regular S1 S2, GI: soft, normoactive bowel sounds, : No Renal angle tenderness; EXTREMITIES: No edema, no clubbing, MUSCULOSKELETAL: no muscle wasting NEURO: Awake; no lateralizing signs. SKIN: No Rash PSYCH; Flat affect Weight / BMI Weight Weight: 62.278 kg Body Mass Index (BMI) 20.8 ABG / Lab / Microbiology Data Result Diagrams: 02/21/22 05:23 02/21/22 05:23 Laboratory: Laboratory Results - last 24 hr 02/20/22 18:08: POC Glucose 123 H 02/20/22 18:55: D-Dimer Quant (PE/DVT) 3.02 H* 02/21/22 05:23: WBC 12.4 H, RBC 3.98 L, Hgb 12.9 L, Hct 37.8 L, MCV 95.0 H, MCH 32.4 H, MCHC 34.1, RDW Std Deviation 47.3 H, RDW Coeff of Krunal 13.5, Plt Count 234, MPV 9.7, Immature Gran % (Auto) 0.600, Neut % (Auto) 80.8 H, Lymph % (Auto) 8.4 L, [place] % (Auto) 10.0, Eos % (Auto) 0.0, Baso % (Auto) 0.2, Absolute Neuts (auto) 10.0 H, Absolute Lymphs (auto) 1.04, Nucleated RBC % 0 02/21/22 05:23: Sodium 136, Potassium 3.7, Chloride 101, Carbon Dioxide 29.0, Anion Gap 6, BUN 16, Creatinine 0.70, Estim Creat Clear Calc 47.57, Est GFR (MDRD) Af Amer 137, Est GFR (MDRD) Non-Af 113, BUN/Creatinine Ratio 22.7 H, Glucose 135 H, Calcium 8.5 Microbiology: Microbiology 02/21/22 09:12 Interface Orders Respiratory Panel (PCR) - Final 02/21/22 11:20 Nasal Secretion SARS-CoV-2 Antigen (Rapid) - Final Radiography Diagnostic Testing: Radiology Impression Chest CTA 02/20/22 20:17 IMPRESSION: No acute findings in the chest. Hiatal hernia. Bilateral shoulder osteoarthrosis and joint effusions. Electronically Signed: Vianney Gomez MD at 21:40 EDT Reading Location ID and State: [id number] / Tel , Service support , D/C Instructions Discharge Diet: No restrictions Discharge Activity: Return to Normal Activity Call your doctor if you observe: Fever of 101 or Higher, Shortness of breath, Fainting spells and Chest pain Meaningful Use Info Meaningful Use Diagnoses (Choose all that apply): None applicable Discharge Plan Admission Admit Date/Time: 02/20/22 00:56 Attending Provider: Tyrone Mixon Primary Care Provider: Care Physician,No Primary Consulting Providers: Luis Miguel Rodas ; Cesar Ureña Discharge Orders/Prescriptions Prescriptions: New sennosides-docusate sodium [Stool Softener-Stimulant Laxat] 8.6-50 mg Tablet 2 tab PO BID PRN PRN (Reason: Constipation) Qty: 0 0RF melatonin 3 mg Tablet 3 mg PO QHS PRN PRN (Reason: Insomnia) Qty: 0 0RF oxycodone 5 mg Tablet 5 mg PO Q4H PRN PRN (Reason: Pain Score 4-5) 2 Days Qty: 8 0RF metoprolol tartrate 25 mg Tablet 25 mg PO BID Qty: 0 0RF acetaminophen [Tylenol] 325 mg Tablet 650 mg PO Q6H PRN PRN (Reason: Pain Score 1-10/Temp > 100.7 F) Qty: 0 0RF enoxaparin 40 mg/0.4 mL Syringe 40 mg subcut DAILY 30 Days Qty: 0 0RF Referrals / Follow Up: Care Physician,No Primary [Primary Care Provider] - Charges/Coding Visit Charges OBSV E&M: 49174 Observation care discharge
[2022-02-21 14:08] VITALS: BP 154/72; PULSE 91; RESP 16; TEMP 37.2; O2SAT 99
--- NOTE | 2022-02-21 15:39 | CASEMGMT ---
Social Work SW received message from TCU that precert has been obtained. Physician updated and pt is ready for discharge today. Orders faxed to TCU and notified of discharge today. Phone call to pt son [place] and informed of acceptance today and that physician plans to discharge today. Pt son is agreeable and will relay information to pt . Plan: TCU, skilled level of care HUONG Mendosa
== END 2022-02-21 16:48 | disposition skilled nursing facility (03) ==
LOC: ED 21:49 → MS3 02-20 01:20
PROVIDERS: Admitting Provider Hospitalist; Emergency Provider Emergency Medicine; Visit Provider Internal Medicine
DX: S72.112A Displaced fracture of greater trochanter of left femur, initial encounter for closed fracture (principal); R03.0 Elevated blood-pressure reading, without diagnosis of hypertension; W01.0XXA Fall on same level from slipping, tripping and stumbling without subsequent striking against object, initial encounter; M19.90 Unspecified osteoarthritis, unspecified site; Y93.01 Activity, walking, marching and hiking; Y99.9 Unspecified external cause status; Y92.009 Unspecified place in unspecified non-institutional (private) residence as the place of occurrence of the external cause; D72.829 Elevated white blood cell count, unspecified; R00.0 Tachycardia, unspecified; R94.31 Abnormal electrocardiogram [ECG] [EKG]
CPT/HCPCS: 36415; 71275; 73502; 73700; 73721; 80048; 82306; 82607; 82962; 85025; 85379; 86850; 86900; 86901; 87426; 87633; 93005; 96372; 96374; 96375; 96376; 97110; 97162; 97166; 97530; 97535; 99218; 99285; Q9967; A4216; G0378

== ENCOUNTER 2022-02-21 16:50 | Inpatient (IN) | payer MEDICARE, SELFPAY ==
[2022-02-21 16:54] VITALS: BP 149/74; PULSE 107; RESP 20; TEMP 36.9; O2SAT 93; BMI 20.8
[2022-02-21 18:44] VITALS: PULSE 107
[2022-02-21] MEDS: Metoprolol Tartrate 25 MG Tablet PO (18:44)
--- NOTE | 2022-02-21 20:02 | HP.PCM_ITS ---
HPI - General General Date of Admission: 02/21/22 Date of Service: 02/21/22 Chief Complaint: Here for rehab. HPI Narrative 02/20/2022 SABINE CISSE, is a 86 Male who presents to [facility] Emergency Department with fall. Tripped over walker, fell, able to stand and walk to bathroom. Later, unable to stand due to left hip pain, no head injury. X-ray showed nondisplaced left greater trochanteric fracture, pain meds given. CT left hip showed the same. 02/20/2022 Admit to Hospital. Pain control, bowel regimen, MRI left hip for left hip fracture. 02/20/2022 MRI left hip showed nondisplaced left greater trochanteric fracture. No surgery recommended. PT/OT for debility. 02/20/2022 EKG showed normal sinus rhythm, normal EKG. 02/21/2022 CTA chest negative pulmonary embolism. Metoprolol 25mg twice daily added for hypertension. 02/21/2022 covid19 negative, respiratory panel negative. 02/21/2022 Admit to TCU with debility, here for rehabilitation, strengthening, prior to discharge home with family. [facility] Medical History Microcytic anemia Osteoarthritis Home Medications acetaminophen 325 mg tablet (Tylenol) 650 mg PO Q6H PRN PRN Pain Score 1-5/Temp > 100.7 F 02/21/22 [History Last Taken Unknown] enoxaparin 40 mg/0.4 mL subcutaneous syringe 40 mg subcut DAILY Anticoagulant 02/21/22 [History Last Taken Unknown] melatonin 3 mg tablet 3 mg PO QHS PRN PRN Insomnia #0 tabs 02/21/22 [Rx Last Taken Unknown] metoprolol tartrate 25 mg tablet 25 mg PO BID BP 02/21/22 [History Last Taken Unknown] oxycodone 5 mg tablet 5 mg PO Q4H PRN PRN Pain Score 6-10 02/21/22 [History Last Taken Unknown] sennosides 8.6 mg-docusate sodium 50 mg tablet (Stool Softener-Stimulant Laxative) 2 tab PO BID PRN PRN Constipation #0 tabs 02/21/22 [Rx Last Taken Unknown] Allergy/AdvReac Type Severity Reaction Status Date / Time No Known Allergies Allergy Verified 10/08/13 23:26 Family History Other Heart disease Surgical History H/O hernia repair History of prostate surgery Social History (Updated 02/21/22 @ 20:[address] Santy Montemayor MD) household members: family Smoking Status: Never smoker alcohol intake: never substance use type: does not use ROS Constitutional Constitutional: Denies chills, fever(s) or weight gain ENT HEENT: Denies headache(s), nasal congestion or nasal discharge Cardiovascular Cardiovascular: Denies chest pain or palpitations Respiratory/Chest Respiratory/Chest: Denies cough, excessive phlegm production or shortness of breath with exertion Gastrointestinal Gastrointestinal: Denies abdominal pain, nausea or vomiting Genitourinary Genitourinary: Denies dysuria Musculoskeletal Musculoskeletal: Denies joint pain or joint swelling Integumentary Integumentary: Denies rash or wounds Neurologic Neurologic: Denies focal weakness, numbness or tingling Psychiatric Psychiatric: Denies anxiety, auditory hallucinations, depression, homicidal ideation or suicidal ideation Vital Signs Vital Signs Vital Signs: 02/21/22 16:54 02/21/22 18:44 Temperature 98.4 F Temperature Source Temporal Pulse Rate 107 H 107 H Respiratory Rate 20 H Blood Pressure 149/74 H Blood Pressure Mean 99 Blood Pressure Source Monitor Blood Pressure Position Supine Blood Pressure Location Left Arm Pulse Ox 93 Oxygen Delivery Method Nasal Cannula Oxygen Flow Rate (L/min) 2 Weight Weight: 62.278 kg Body Mass Index (BMI) 20.8 Physical Exam Const alert General Appearance: cooperative HEENT normocephalic Eyes PERRL and EOMs intact bilaterally Neck supple, no JVD and no carotid bruits Resp normal respiratory effort, normal air movement and clear to auscultation bilaterally Cardio regular rate and regular rhythm GI normal to inspection, nondistended, normoactive bowel sounds, non-tender and non-distended Extremity normal capillary refill General Extremity: Negative for edema Skin no rashes or lesions noted General Skin Exam: no breakdown Psych affect normal Appearance: appropriate Assessment & Plan Assessment/Plan (1) Debility: (2) Hip fracture, left: (3) Hypertension: (4) Microcytic anemia: (5) Osteoarthritis: PLAN: Plan 86 year old male with below past medical history hospitalized for nondisplaced left greater trochanteric fracture, no surgery recommended, complicated by elevated blood pressure, admitted to TCU with debility, here for rehabilitation, strengthening, prior to discharge home with family. * Debility - PT/OT. * Pain - Tylenol 1000mg q6h prn pain (1-5), Oxycodone 5mg q4h prn pain (6-10). * Bowel - Miralax 17gm daily, Senna/colace 2 tablets bid, Dulcolax 10mg daily prn. * Adult immunization - Administer pneumonia vaccine, covid19 vaccine, flu vaccine as appropriate. * DVT prophylaxis - Lovenox 40mg sc daily. * Insomnia - Melatonin 3mg qhs prn. * Hypertension - Metoprolol 25mg bid.
[2022-02-21 22:00] VITALS: PULSE 76; RESP 16; O2SAT 100
[2022-02-21] MEDS: MELATONIN 3 MG TABLET PO (22:31)
[2022-02-21] MEDS: 0.9% Saline Lock 10 ML Syringe IV (22:31)
[2022-02-21] MEDS: oxyCODONE 5 MG Tablet PO (22:31)
[2022-02-22 05:35] LABS: Absolute Lymphocyte Count 1.33 X10^3/uL (0.83-4.51); Basophil# 0.03 X10^3/uL; Basophil% 0.3 % (0-1); Eosinophil# 0.03 X10^3/uL; Eosinophils% 0.3 % (0-5); Hematocrit 35.8 % (40-54); Hemoglobin 12.1 g/dL (13.0-16.5); Lymphocyte # 1.33 X10^3/ul (0.83-4.51); Lymphocyte % 11.4 % (19-41); Mean Corp Hgb Conc 33.8 g/dL (32-36); Mean Corpuscular Hgb 32.8 pg (27.0-32.0); Monocyte# 1.15 X10^3/uL; Monocyte% 9.9 % (0-10); NRBC Flagged by Analyzer 0 % (0-5); Neutrophil # 9.04 X10^3/uL (2.7-7.7); Neutrophil % 77.5 % (47-70); Platelet Count 242 K/mm3 (150-450); RBC Distribution Width CV 13.6 % (11.6-14.6); RBC Distribution Width SD 48.4 fl (35.1-43.9); Red Blood Count 3.69 M/mm3 (4.6-6.2); White Blood Count 11.7 K/mm3 (4.4-11.0)
[2022-02-22 06:14] LABS: Anion Gap 4 (5-15); BUN 28 mg/dL (7-18); BUN/Creat Ratio 29.2 RATIO (10-20); Calcium,Total 8.8 mg/dL (8.5-10.1); Chloride 101 mmol/L (98-107); Creatinine, Serum 0.96 mg/dL (0.70-1.30); EST Glomerular Filtration Rate 79 mL/min (>60); Est Glom Filt Rate - Afr Amer 96 mL/min (>60); Estimated Creatinine Clearance 49.56 ml/min; Glucose 121 mg/dL (74-106); Potassium 3.7 mmol/L (3.5-5.1); Sodium Level 134 mmol/L (136-145)
[2022-02-22 07:22] VITALS: BP 131/61; PULSE 91
[2022-02-22] MEDS: Bisacodyl 5 MG Tablet 10 MG PO (07:22)
[2022-02-22] MEDS: Metoprolol Tartrate 25 MG Tablet PO ×2 (07:22→17:53)
[2022-02-22] MEDS: Enoxaparin 40 MG/0.4 ML Syringe SC (07:23)
--- NOTE | 2022-02-22 09:09 | PHA.CONS_ITS ---
TCU RX Drug Regimen Review Subjective: 86 yo male admitted to [facility] for fall resulting in left hip fracture and associated elevated blood pressure, no surgery recommended. Now admitted to TCU for debility, rehab and strengthening prior to discharge home.[] Objective: Allergies No Known Allergies Allergy (Verified 10/08/13 23:26) Current Medications Generic Name Dose Route Start Last Admin Trade Name Freq PRN Reason Stop Dose Admin Acetaminophen 1,000 mg 02/21/22 20:13 Acetaminophen 500 Mg Tablet PO Q6H PRN PRN Pain Score 1-5 Bisacodyl 10 mg 02/21/22 20:13 02/22/22 07:22 Bisacodyl 5 Mg Tablet PO 10 mg DAILY PRN Administration Constipation Enoxaparin Sodium 40 mg 02/22/22 06:00 02/22/22 07:23 Enoxaparin 40 Mg/0.4 Ml Syringe SC 40 mg DAILY JP Administration Melatonin 3 mg 02/21/22 16:57 02/21/22 22:31 Melatonin 3 Mg Tablet PO 3 mg QHS PRN PRN Administration Insomnia Metoprolol Tartrate 25 mg 02/21/22 18:00 02/22/22 07:22 Metoprolol Tartrate 25 Mg Tablet PO 25 mg BID JP Administration Oxycodone HCl 5 mg 02/21/22 16:57 02/21/22 22:31 Oxycodone 5 Mg Tablet PO 5 mg Q4H PRN PRN Administration Pain Score 6-10 Polyethylene Glycol 17 gm 02/22/22 06:00 02/22/22 07:21 Polyethylene Glycol 3350 17 Gm Packet PO Not Given DAILY JP Senna/Docusate Sodium 2 tablet 02/22/22 06:00 02/22/22 07:24 Senna/Docusate Sodium 1 Tablet PO Not Given BID JP Sodium Chloride 10 - 40 ml 02/21/22 18:33 02/21/22 22:31 0.9% Saline Lock 10 Ml Syringe IV 10 ml UD PRN Administration SALINE FLUSH Tuberculin PPD 0.1 ml 02/22/22 10:00 Tuberculin,Purif.Prot.Deriv. 50 Tu/Ml Vial ID 02/22/22 10:01 X1 ONE Tuberculin PPD 0.1 ml 03/01/22 10:00 Tuberculin,Purif.Prot.Deriv. 50 Tu/Ml Vial ID 03/01/22 10:01 X1 ONE Problem List (Last Reviewed 02/21/22 @ 20:[address] Santy Montemayor MD) Osteoarthritis (Acute) Microcytic anemia (Acute) Hypertension (Chronic) Debility (Acute) Hip fracture, left (Acute) Vital Signs Temp Pulse Resp BP Pulse Ox O2 Del Method O2 Flow Rate 98.4 F 91 16 131/61 H 100 Room Air 2 02/21/22 16:54 02/22/22 07:22 02/21/22 22:00 02/22/22 07:22 02/21/22 22:00 02/21/22 22:00 02/21/22 16:54 Oxygen Flow Rate (L/min) 2 Oxygen Delivery Method Room Air Weight: 62.278 kg Body Mass Index (BMI) 20.8 Sodium 134 mmol/L (136-145) L 02/22/22 05:16 Potassium 3.7 mmol/L (3.5-5.1) 02/22/22 05:16 Chloride 101 mmol/L (98-107) 02/22/22 05:16 Carbon Dioxide 29.0 mmol/L (21.0-32.0) 02/22/22 05:16 Anion Gap 4 (5-15) L 02/22/22 05:16 BUN 28 mg/dL (7-18) H 02/22/22 05:16 Creatinine 0.96 mg/dL (0.70-1.30) 02/22/22 05:16 Est GFR (MDRD) Af Amer 96 mL/min (>60) 02/22/22 05:16 Est GFR (MDRD) Non-Af 79 mL/min (>60) 02/22/22 05:16 BUN/Creatinine Ratio 29.2 RATIO (10-20) H 02/22/22 05:16 Glucose 121 mg/dL (74-106) H 02/22/22 05:16 Assessment/Plan: 1) pain secondary to hip fracture/osteoarthritis: acetaminophen 1000mg po q6h prn pain 1-5 (none taken), oxycodone 5mg po q4h prn pain 6-10 ( has taken 2 doses 02.21.22 2231, 02.22.22 1002) pre dose hip pain 10/10, post dose assessment N/A , resident resting). Continue to monitor for increased/decreased pain, oversedation (FRASS score 10, history of 1-2 falls in last 6 mos), respiratory depression, constipation, mental status. 2) bowel: bisacodyl 10mg po daily prn (given 02.22.22721, last BM 02.18.22), sennokot-S 2 tab po bid (not given AM 02.22.22 d/t prn med given), Miralax 17gm po daily (not given AM 02.22.22 d/t prn med given). Continue to monitor for increased/decreased constipation/diarrhea. Patient is increased risk for constipation with oxycodone use. 3) DVT prophylaxis: enoxaparin 40mg SC daily. Continue to monitor for signs/symptoms of bleeding, Hg (12.1 02.22.22),platelets (242 02.22.22),renal function ( Cr/CrCl 0.96/50 02.22.22). 4) insomnia: melatonin 3mg po qhs prn (given 02.21.22). Continue to monitor cognition, sleep pattern. 5) hypertension, newly diagnosed during hospitalization for hip fracture: metoprolol 25mg po bid (started 02.21.22). Continue to monitor BP (range 149/74- 131/61, had been generally 150-170/60-90 prior to initiation), HR(range 76-107), symptoms of orthostasis, dizziness. Assessment/Plan for indications treated with psychotropic medications: None Medical chart and medication regimen reviewed. The following medication irregularities or issues were identified: None Date of Note:: 02/22/22
[2022-02-22] MEDS: oxyCODONE 5 MG Tablet PO ×3 (10:02→21:34)
[2022-02-22] MEDS: Tuberculin,Purif.prot.deriv. 50 TU/ML Vial 0.1 ML ID (10:04)
--- NOTE | 2022-02-22 10:22 | NURSING ---
Patient esteban Marrero called and given update regarding patient also notified of visiting hours and policy.
[2022-02-22] MEDS: Acetaminophen 500 MG Tablet 1000 MG PO (15:18)
--- NOTE | 2022-02-22 15:32 | CASEMGMT ---
Social Work Pt's cognition is not intact and unable to answer assessment questions. Referral made to . Contacted PTN, son Tyrone. Tyrone confirmed does not have a phone number and the best person to get information is, son Moreno, whom resides with pt and . Contacted son, Moreno. Introduced self and role. Moreno states there are 8 children. Tyrone is the oldest and Moreno is the youngest. Son states there is not advanced directives for pt. Moreno works 12 hours days, thus pt and are home alone. has own mobility issues and cannot physically assist pt. Son reports to pt having some confusion prior, but not this significant. Son assists with all IADLs. Pt was independent prior with ADLs. For pt to return home, he must return to [facility]. [facility] with each review not assuring continued stay. SW to continue to follow for DC planning assistance. Paola Clarke, SHEET METAL SUPERVISOR STRAP CUTTER
[2022-02-22 16:00] VITALS: BP 110/50; PULSE 70; RESP 18; TEMP 37.1; O2SAT 96
[2022-02-22 17:53] VITALS: BP 112/62; PULSE 70
[2022-02-22] MEDS: MELATONIN 3 MG TABLET PO (21:34)
[2022-02-23] MEDS: oxyCODONE 5 MG Tablet PO ×2 (06:17→21:57)
[2022-02-23] MEDS: Bisacodyl 5 MG Tablet 10 MG PO (06:17)
[2022-02-23 06:18] VITALS: BP 138/82; PULSE 89
[2022-02-23] MEDS: Polyethylene Glycol 3350 17 GM PACKET PO (06:18)
[2022-02-23] MEDS: Metoprolol Tartrate 25 MG Tablet PO ×2 (06:18→17:15)
[2022-02-23] MEDS: Enoxaparin 40 MG/0.4 ML Syringe SC (06:18)
[2022-02-23] MEDS: 0.9% Saline Lock 10 ML Syringe IV (06:23)
[2022-02-23] MEDS: Senna/Docusate Sodium 1 Tablet 2 TABLET PO ×2 (06:24→17:17)
--- NOTE | 2022-02-23 09:54 | NURSING ---
SOAP SUDS ORDERED FOR PT. PT REFUSED,THIS NURSE OFFERED MAG CITRATE PT STATED NO I WANT TO TRY PRUNE JUICE FIRST THATS WHAT I DRINK EVERY MORNING. DID TEACHING WITH PT ON IMPORTANCE OF HAVING BM AND OUT COME IF NOT HAVING ONE. PT STATED HE UNDER STOOD. RN AWARE
[2022-02-23 14:38] VITALS: BP 162/70; PULSE 98; RESP 16; TEMP 37.1; O2SAT 96
--- NOTE | 2022-02-23 15:53 | NURSING ---
Addendum entered by Cristofer Medina 02/23/22 16:25: PT HAD A XX LARGE SOFT STOOL. Original Note: PT AGREED TO SOAP SUDS. GIVEN,PT TOLERATED WELL, ON BED COLE. SALINE LOCK REMOVED FROM RT AC DUE TO REDNESS.
[2022-02-23 17:15] VITALS: BP 162/70; PULSE 98
[2022-02-23 22:00] VITALS: O2SAT 96
[2022-02-24] MEDS: Polyethylene Glycol 3350 17 GM PACKET PO (04:42)
[2022-02-24] MEDS: Enoxaparin 40 MG/0.4 ML Syringe SC (04:42)
[2022-02-24 04:43] VITALS: BP 139/66; PULSE 89
[2022-02-24] MEDS: Metoprolol Tartrate 25 MG Tablet PO ×2 (04:43→16:55)
[2022-02-24] MEDS: Senna/Docusate Sodium 1 Tablet 2 TABLET PO ×2 (07:53→16:59)
[2022-02-24] MEDS: oxyCODONE 5 MG Tablet PO ×2 (07:56→14:56)
[2022-02-24 09:50] VITALS: PULSE 82; RESP 18; O2SAT 96
--- NOTE | 2022-02-24 10:11 | NURSING ---
HARTMAN REMOVED AT 10 AM. OK PER . BLADDER SCANS q8HRS FOR 48 HRS. RN AWARE
[2022-02-24 15:43] VITALS: BP 121/98; PULSE 81; RESP 20; TEMP 36.2; O2SAT 97
--- NOTE | 2022-02-24 16:52 | NURSING ---
PER NOTES FOUND AFTER MRI,PT IS TO BE PARTIAL WEIGHT BEARING. RN AWARE
[2022-02-24 16:55] VITALS: BP 121/98; PULSE 81
--- NOTE | 2022-02-24 17:04 | NURSING ---
PT AND FAMILY UPDATED ON POSITIVE STAFF MEMBER WITH COVID.
[2022-02-24] MEDS: Acetaminophen 500 MG Tablet 1000 MG PO (22:19)
[2022-02-25 04:50] VITALS: BP 138/78; PULSE 94
[2022-02-25] MEDS: Metoprolol Tartrate 25 MG Tablet PO ×2 (04:50→17:34)
[2022-02-25] MEDS: Enoxaparin 40 MG/0.4 ML Syringe SC (04:50)
[2022-02-25] MEDS: oxyCODONE 5 MG Tablet PO ×3 (04:53→23:13)
[2022-02-25 14:46] VITALS: BP 144/74; PULSE 97; RESP 18; TEMP 36.6; O2SAT 94
[2022-02-25 17:34] VITALS: PULSE 97
--- NOTE | 2022-02-25 19:50 | NURSING ---
Visitors in room with patient who identify themselves as Elle and Kuldip. Elle notes she is the patient's daughter. Has questions about medications. Would like pt's gown changed and overbed table cleaned. Gown changed and table cleaned. Informed Elle one of her brothers will need to sign paperwork. She notes that Moreno, will be the one to sign the papers. Will report to the oncoming nurse.
[2022-02-25] MEDS: Acetaminophen 500 MG Tablet 1000 MG PO (23:12)
[2022-02-26] MEDS: oxyCODONE 5 MG Tablet PO ×3 (04:26→17:20)
[2022-02-26] MEDS: Enoxaparin 40 MG/0.4 ML Syringe SC (04:26)
[2022-02-26 04:27] VITALS: BP 145/61; PULSE 75
[2022-02-26] MEDS: Metoprolol Tartrate 25 MG Tablet PO ×2 (04:27→17:17)
[2022-02-26 14:09] VITALS: BP 121/70; PULSE 102; RESP 16; TEMP 36.7; O2SAT 94
[2022-02-26] MEDS: Acetaminophen 500 MG Tablet 1000 MG PO ×2 (14:12→21:57)
--- NOTE | 2022-02-26 15:22 | NURSING ---
Pt knocked over lunch tray and when entering room pt was observed standing up holding onto table attempting to walk, pt assisted back into recliner and hoyered back into bed per request
[2022-02-26 17:17] VITALS: PULSE 102
[2022-02-26] MEDS: Senna/Docusate Sodium 1 Tablet 2 TABLET PO (17:20)
[2022-02-27 05:01] VITALS: BP 156/79; PULSE 77
[2022-02-27] MEDS: Metoprolol Tartrate 25 MG Tablet PO ×2 (05:01→17:22)
[2022-02-27] MEDS: Acetaminophen 500 MG Tablet 1000 MG PO ×3 (05:02→22:13)
[2022-02-27] MEDS: Senna/Docusate Sodium 1 Tablet 2 TABLET PO ×2 (05:02→17:22)
[2022-02-27] MEDS: Polyethylene Glycol 3350 17 GM PACKET PO (05:03)
[2022-02-27] MEDS: Enoxaparin 40 MG/0.4 ML Syringe SC (05:03)
--- NOTE | 2022-02-27 08:12 | NURSING ---
Bladder scan for [address] cath using sterile technique for 700 ml straw/ilan urine, clear urine. Pt tolerated well. Will continue to monitor.
--- NOTE | 2022-02-27 11:22 | CASEMGMT ---
Social Work Brief interview for mental status (BIMS) and resident mood assessment (PHQ-9) completed on this day. Luis MARCIAL, MELLYS
--- NOTE | 2022-02-27 12:24 | NURSING ---
resident educated on the COVID 19 Vaccine and does not want to receive it.
--- NOTE | 2022-02-27 15:43 | NURSING ---
PT BLADDER SCAN FOR 583. STRAIGHT CATHED FOR 500.
[2022-02-27 16:00] VITALS: BP 131/61; PULSE 84; RESP 14; TEMP 37; O2SAT 99
[2022-02-27 17:22] VITALS: BP 131/61; PULSE 84
[2022-02-27] MEDS: oxyCODONE 5 MG Tablet PO (17:24)
[2022-02-27 22:25] VITALS: O2SAT 97
[2022-02-28] MEDS: Polyethylene Glycol 3350 17 GM PACKET PO (04:43)
[2022-02-28 04:45] VITALS: BP 136/71; PULSE 86
[2022-02-28] MEDS: Enoxaparin 40 MG/0.4 ML Syringe SC (04:45)
[2022-02-28] MEDS: Metoprolol Tartrate 25 MG Tablet PO ×2 (04:45→17:08)
[2022-02-28] MEDS: Senna/Docusate Sodium 1 Tablet 2 TABLET PO ×2 (04:46→17:12)
[2022-02-28] MEDS: Acetaminophen 500 MG Tablet 1000 MG PO ×3 (04:46→21:18)
--- NOTE | 2022-02-28 09:22 | NURSING ---
pt refusing pneumo vaccines
[2022-02-28 10:40] VITALS: PULSE 79; RESP 18; O2SAT 98
--- NOTE | 2022-02-28 10:54 | CASEMGMT ---
Social Work Continued stay approved by insurance with next update due on 03/06/2022. This web content & social media manager updated patient on above information. Patient voiced understanding and request for this web content & social media manager to update patient son, Chandrika on above information. Telephone call to Chandrika. This web content & social media manager updated Chandrika on above information. Chandrika voiced understanding. This web content & social media manager broached conversation of discharge plan and communicated to Chandrika that current recommendation is for patient to transition to a jail setting due to x2 assistance being needed. Chandrika voiced understanding and believes that first choice would be [facility]. This web content & social media manager communicating that jail placement would be private pay after insurance denies continued stay. Chandrika voiced understanding and also plans to look into paying for someone to come into the home. Chandrika reports to already be paying for an aide in the home to assist with patient spouse and I might ask her. Chandrika agreeable to this web content & social media manager putting list of private duty aides and nursing homes that are local to patient geographical region in patient room for Chandrika to slate picker and go over later today. Chandrika reports plan to stop in to see patient this afternoon. Chandrika states that if patient is able to get down to 1 assist that we could probably take him home. This web content & social media manager voiced understanding and shared information with team. Team continues to recommend jail placement. Social Work to continue to follow. Luis MARCIAL, PILY
[2022-02-28] MEDS: oxyCODONE 5 MG Tablet PO ×3 (11:34→21:19)
[2022-02-28 13:50] VITALS: BP 124/71; PULSE 96; RESP 14; TEMP 36.7; O2SAT 98
[2022-02-28 17:08] VITALS: BP 124/71; PULSE 96
[2022-02-28] MEDS: Tamsulosin HCl 0.4 MG Capsule PO (17:08)
[2022-02-28] MEDS: MELATONIN 3 MG TABLET PO (21:19)
[2022-03-01] MEDS: Enoxaparin 40 MG/0.4 ML Syringe SC (05:12)
[2022-03-01 05:13] VITALS: PULSE 86
[2022-03-01] MEDS: Metoprolol Tartrate 25 MG Tablet PO ×2 (05:13→17:54)
[2022-03-01] MEDS: Polyethylene Glycol 3350 17 GM PACKET PO (05:14)
[2022-03-01] MEDS: Acetaminophen 500 MG Tablet 1000 MG PO ×3 (05:17→21:15)
[2022-03-01] MEDS: Senna/Docusate Sodium 1 Tablet 2 TABLET PO ×2 (05:18→17:56)
[2022-03-01 05:25] VITALS: BP 134/81; PULSE 83; RESP 18; TEMP 37.3; O2SAT 96
[2022-03-01 05:44] LABS: Absolute Lymphocyte Count 1.75 X10^3/uL (0.83-4.51); Absolute Neutrophil Count 4.9 X10^3/uL (2.0-7.7); Basophil# 0.08 X10^3/uL; Basophil% 1.1 % (0-1); Eosinophil# 0.23 X10^3/uL; Hematocrit 34.4 % (40-54); Hemoglobin 11.5 g/dL (13.0-16.5); Lymphocyte # 1.75 X10^3/ul (0.83-4.51); Mean Corp Hgb Conc 33.4 g/dL (32-36); Mean Corpuscular Hgb 32.1 pg (27.0-32.0); Mean Corpuscular Volume 96.1 fL (80-94); Mean Platelet Vol. 9.1 fl (6.2-12.0); Monocyte# 0.58 X10^3/uL; Monocyte% 7.6 % (0-10); NRBC Flagged by Analyzer 0 % (0-5); Neutrophil # 4.88 X10^3/uL (2.7-7.7); Neutrophil % 64.2 % (47-70); Platelet Count 464 K/mm3 (150-450); RBC Distribution Width CV 13.2 % (11.6-14.6); Red Blood Count 3.58 M/mm3 (4.6-6.2); White Blood Count 7.6 K/mm3 (4.4-11.0)
[2022-03-01 06:19] LABS: Anion Gap 5 (5-15); BUN 18 mg/dL (7-18); BUN/Creat Ratio 24.6 RATIO (10-20); Calcium,Total 8.4 mg/dL (8.5-10.1); Chloride 100 mmol/L (98-107); Creatinine, Serum 0.73 mg/dL (0.70-1.30); EST Glomerular Filtration Rate 108 mL/min (>60); Est Glom Filt Rate - Afr Amer 131 mL/min (>60); Estimated Creatinine Clearance 48.58 ml/min; Glucose 119 mg/dL (74-106); Potassium 4.1 mmol/L (3.5-5.1); Sodium Level 136 mmol/L (136-145)
--- NOTE | 2022-03-01 09:18 | CASEMGMT ---
Social Work Plan of care meeting held. Patient present as well as patient son, Kuldip and patient son Chandrika. Chandrika present via speaker phone. Patient progressing in physical and occupational therapy. Speech therapy participated in meeting due to concerns of patient cognition. Chandrika reports that patient does appear to have a change in cognition. Speech therapy to follow and evaluate as appropriate. Physical and Occupational therapy are reporting that patient requires x2 assist with mobility. Patient with next insurance update due on 03/06/2022. This social sciences department chair communicating that there is no guarantee of continued stay approval and if continued stay is denied patient would need to discharge or financial responsibility to begin within three days after being denied coverage by insurance. This social sciences department chair confirming with Chandrika that Chandrika did waste picker list of snf facilities and telegraph office route aide list. Chandrika confirms to have resources. Chandrika and Kuldip report that plan will be to talk things over with family and have a decision on Sunday on what plan is for discharge, home vs. SNF. Family confirms to not be able to take patient home at x2 assist. Active support and listening provided. Social Work to continue to follow. Luis MARCIAL, PILY
[2022-03-01] MEDS: oxyCODONE 5 MG Tablet PO (11:29)
[2022-03-01] MEDS: Tuberculin,Purif.prot.deriv. 50 TU/ML Vial 0.1 ML ID (11:30)
[2022-03-01 13:45] VITALS: BP 124/62; PULSE 78; RESP 16; TEMP 36.3; O2SAT 97
[2022-03-01 17:54] VITALS: PULSE 99
[2022-03-01] MEDS: Tamsulosin HCl 0.4 MG Capsule PO (17:55)
[2022-03-01 21:00] VITALS: O2SAT 96
[2022-03-01 21:02] VITALS: BP 142/72; PULSE 82
[2022-03-02 06:10] VITALS: BP 143/71; PULSE 82
[2022-03-02] MEDS: Acetaminophen 500 MG Tablet 1000 MG PO ×3 (06:17→22:11)
[2022-03-02] MEDS: Enoxaparin 40 MG/0.4 ML Syringe SC (06:17)
[2022-03-02] MEDS: Senna/Docusate Sodium 1 Tablet 2 TABLET PO ×2 (06:17→17:44)
[2022-03-02 06:18] VITALS: PULSE 82
[2022-03-02] MEDS: Polyethylene Glycol 3350 17 GM PACKET PO (06:18)
[2022-03-02] MEDS: Metoprolol Tartrate 25 MG Tablet PO ×2 (06:18→17:42)
[2022-03-02] MEDS: oxyCODONE 5 MG Tablet PO (08:16)
[2022-03-02 12:50] VITALS: PULSE 91; RESP 18; O2SAT 92
[2022-03-02 15:47] VITALS: BP 129/62; PULSE 89; RESP 17; TEMP 37.1; O2SAT 96
[2022-03-02 17:42] VITALS: BP 129/62; PULSE 89
[2022-03-02] MEDS: Tamsulosin HCl 0.4 MG Capsule PO (17:42)
[2022-03-03 05:50] VITALS: PULSE 96
[2022-03-03] MEDS: Enoxaparin 40 MG/0.4 ML Syringe SC (05:50)
[2022-03-03] MEDS: Polyethylene Glycol 3350 17 GM PACKET PO (05:50)
[2022-03-03] MEDS: Metoprolol Tartrate 25 MG Tablet PO ×2 (05:50→17:41)
[2022-03-03] MEDS: Senna/Docusate Sodium 1 Tablet 2 TABLET PO ×2 (05:52→17:41)
[2022-03-03] MEDS: Acetaminophen 500 MG Tablet 1000 MG PO ×3 (05:52→20:28)
--- NOTE | 2022-03-03 09:23 | PCM.PN.BLA ---
Progress Note Asked by nursing and therapy to see this patient for periodic inability to move or talk. Has been doing this at home. Has had some falls over the past year. Denies tremors. Denies dysphagia. No hallucinations. Has never had a seizure. Afebrile VSS Maintaining appropriate oxygen saturation on RA Reviewed the PT/OT/ST notes Medication list reviewed. Physical Exam Const alert and no apparent distress Constitutional Narrative: Sitting in bed. Appears comfortable. He is appropriate and talkative. Makes good eye contact with me when we are talking. General Appearance: cooperative Eyes PERRL, EOMs intact bilaterally, conjunctivae normal and no scleral icterus General Eye: normal appearance of both eyes Resp normal respiratory effort, normal air movement and clear to auscultation bilaterally Cardio regular rate, regular rhythm and no gallops GI normal to inspection, nondistended, normoactive bowel sounds, soft to palpation and non-tender Extremity no calf tenderness and no pedal edema Skin Skin Narrative: no rashes General Skin Exam: no breakdown Neuro Neuro Narrative: No bradykinesia or rigidity. No resting tremors. No limb ataxia. I did not walk him. Speech is fluid. No masked faces Assessment & Plan Assessment/Plan (1) Absence seizure: PLAN: Doubt he has significant PD. No bradykinesia, rigidity, tremors or masked faces. Voice projects well. I think he may be having absence seizures he freezes for 1-3 minutes and then can move and talk. He has had multiple falls. Will get a CTB and an EEG. Visit Charges Inpatient E&M: 56681 SNF Subs L2
[2022-03-03] MEDS: oxyCODONE 5 MG Tablet PO (09:49)
--- NOTE | 2022-03-03 10:48 | TELEMED_ITS ---
SOC Telemed has confirmed receipt of a request for visit. This document confirms receipt of the order initiating the consult. To find the results of the consultation, please view the patient's reports for the scanned Telemed Consult.
--- NOTE | 2022-03-03 11:41 | NURSING ---
Addendum entered by Britt Cruz 03/03/22 11:44: also EEG Original Note: dr keita ordered CT head w/out contrast, will get preauthorization via insurance co
--- NOTE | 2022-03-03 12:21 | NURSING ---
Called [facility] for prior authorization of the CT of brain/head without contrast. Case #[id number]. Approved Auth# [id number].
[2022-03-03 17:41] VITALS: PULSE 86
[2022-03-03] MEDS: Tamsulosin HCl 0.4 MG Capsule PO (17:42)
[2022-03-04 05:48] VITALS: BP 126/67; PULSE 87
[2022-03-04] MEDS: Metoprolol Tartrate 25 MG Tablet PO ×2 (05:48→17:23)
[2022-03-04] MEDS: Polyethylene Glycol 3350 17 GM PACKET PO (05:48)
[2022-03-04] MEDS: Acetaminophen 500 MG Tablet 1000 MG PO ×3 (05:49→20:16)
[2022-03-04] MEDS: Senna/Docusate Sodium 1 Tablet 2 TABLET PO ×2 (05:49→17:24)
[2022-03-04] MEDS: Enoxaparin 40 MG/0.4 ML Syringe SC (05:50)
[2022-03-04 13:13] LABS: Mucous, Urine 0 SEEN /hpf (<or=2+)
[2022-03-04 13:36] VITALS: BP 117/55; PULSE 97; RESP 18; TEMP 37.3; O2SAT 99
[2022-03-04 17:23] VITALS: PULSE 97
[2022-03-04] MEDS: Tamsulosin HCl 0.4 MG Capsule PO (17:23)
[2022-03-04 19:05] LABS: Color, Urine Yellow (Yellow); Glucose, Dipstick Normal (Normal); Ketone-Dipstick Negative (Negative); Leukocyte Esterase-Dipstick 500 /ul (Negative); Nitrite-Dipstick Negative (Negative); Occult Blood-Urine 150 /ul (Negative); Protein-Dipstick 15 mg/dl (Negative); Specific Gravity, Urine 1.025 (1.002-1.030); Urine Bilirubin Dipstick Negative (Negative); Urine Clarity Clear (Clear); Urine Urobilinogen 1 mg/dl (Normal)
[2022-03-04 19:23] LABS: Red Blood Cells-Urine 10-25 SEEN /hpf (0-5); White Blood Cells 10-25 SEEN /hpf (0-5)
[2022-03-04 19:24] LABS: Bacteria 3+ /hpf (None Seen); Calcium Oxalate Crystals Ur 4+ /hpf (<or=2+); Squamous Epithelial Cells - UA 5-10 SEEN /hpf (0-5)
[2022-03-05] MEDS: Senna/Docusate Sodium 1 Tablet 2 TABLET PO ×2 (05:57→15:00)
[2022-03-05 05:58] VITALS: BP 132/84; PULSE 92
[2022-03-05] MEDS: Metoprolol Tartrate 25 MG Tablet PO ×2 (05:58→15:00)
[2022-03-05] MEDS: Acetaminophen 500 MG Tablet 1000 MG PO ×3 (05:58→21:04)
[2022-03-05] MEDS: Polyethylene Glycol 3350 17 GM PACKET PO (05:59)
[2022-03-05] MEDS: Enoxaparin 40 MG/0.4 ML Syringe SC (05:59)
[2022-03-05] MEDS: oxyCODONE 5 MG Tablet PO (05:59)
[2022-03-05] MEDS: FOSFOMYCIN TROMETHAMINE 3 GM PACKET PO (14:59)
[2022-03-05 15:00] VITALS: PULSE 83
[2022-03-05] MEDS: Tamsulosin HCl 0.4 MG Capsule PO (15:00)
[2022-03-05 15:08] VITALS: BP 143/73; PULSE 103; RESP 16; TEMP 36.6; O2SAT 95
[2022-03-06 06:11] VITALS: BP 161/91; PULSE 101
[2022-03-06] MEDS: Metoprolol Tartrate 25 MG Tablet PO ×2 (06:11→17:29)
[2022-03-06] MEDS: Senna/Docusate Sodium 1 Tablet 2 TABLET PO ×2 (06:11→17:29)
[2022-03-06] MEDS: Acetaminophen 500 MG Tablet 1000 MG PO ×3 (06:11→21:22)
[2022-03-06] MEDS: Enoxaparin 40 MG/0.4 ML Syringe SC (06:13)
[2022-03-06] MEDS: oxyCODONE 5 MG Tablet PO ×2 (09:59→21:21)
--- NOTE | 2022-03-06 10:26 | MDS.RN ---
Information for the mds was obtained from review of the clinical record, interview of resident, staff, and direct observation of resident's care.
--- NOTE | 2022-03-06 10:42 | PN_ITS ---
Subjective Subjective Afebrile VSS Maintaining appropriate oxygen saturation on RA Oral intake is erratic. Discussed with nursing - they reported to me a few days ago that he seemed to be more confused and he was found to have a urinary tract infection due to Enterococcus faecalis and it was treated with 3 g of fosfomycin x1. He has been afebrile since 03/04/2022 at 1:30 PM when he was 99.2. Reviewed the PT/OT/ST notes Medication list reviewed. Urine is growing Enterococcus faecalis which is pansensitive. He was treated with 3 GM of Fosfomycin yesterday. There are no results on the EEG that was ordered on the . Objective Data Objective Data Vital Signs: Vital Signs Temp Pulse Resp BP Pulse Ox O2 Del Method O2 Flow Rate 97.8 F 101 H 16 161/91 H 95 Room Air 2 03/05/22 15:08 03/06/22 06:11 03/05/22 15:08 03/06/22 06:11 03/05/22 15:08 03/05/22 15:08 02/21/22 16:54 Oxygen Flow Rate (L/min) 2 Oxygen Delivery Method Room Air Weight: 140 lb 3.2 oz Body Mass Index (BMI) 20.8 Intake & Output: Intake and Output for Last 24 Hours 03/04/22 03/05/22 03/06/22 23:59 23:59 23:59 Intake Total 460 / 460 890 / 890 360 / 360 Output Total 2250 / 2250 2375 / 2375 1050 / 1050 Balance -1790 / -1790 -1485 / -1485 -690 / -690 Lab / Micro Data Result Diagrams: 03/01/22 05:16 03/01/22 05:16 Micro: Microbiology 03/04/22 13:01 Urine Catheter - Aggarwal Urine Culture - Final Enterococcus faecalis 03/02/22 08:15 Nasal Secretion SARS-CoV-2 Antigen (Rapid) - Final 02/28/22 04:50 Nasal Secretion SARS-CoV-2 Antigen (Rapid) - Final Physical Exam Const Constitutional Narrative: drowsy, I woke him from sleep. HEENT normocephalic Eyes PERRL, EOMs intact bilaterally, conjunctivae normal and no scleral icterus Resp normal respiratory effort, normal air movement and clear to auscultation bi laterally Cardio regular rate, regular rhythm, no rub and no gallops GI normal to inspection, nondistended, normoactive bowel sounds, soft to palpation and non-tender GI Narrative: No guarding with palpation Extremity no calf tenderness and no pedal edema Skin Skin Narrative: no rashes General Skin Exam: no breakdown Neuro Neuro Narrative: Speech is difficult to understand Assessment & Plan Assessment/Plan (1) Debility: (2) Hip fracture, left: (3) UTI (urinary tract infection) due to Enterococcus: PLAN: He was treated with a single dose of Fosfomycin (4) Absence seizure: PLAN: suspected. Awaiting the results of the EEG ordered 03/03/22. (5) Dementia: PLAN: Plan Family has decided on an ECF at [place]. DC scheduled for 03/09/22. Charges/Coding Visit Charges Inpatient E&M: 57279 SNF Subs L2
--- NOTE | 2022-03-06 14:51 | CASEMGMT ---
Social Work Continued stay denied by insurance with last cover day to be 03/08/2022 and patient to discharge or financial responsibility to begin on 03/09/2022. This social work professor updated patient on above information. Patient voiced understanding and signed Notice of Medicare Non-Coverage. Patient request for this social work professor to reach out to patient son for discharge planning. Patient aware that team is not recommending for patient to discharge to the community. Telephone call to patient son, Chandrika. This social work professor updated Chandrika on above information. Chandrika voiced understanding and reports that plan is for patient to discharge to [facility]. This social work professor reminding Chandrika that [facility] will be private pay as continued stay was denied for skilled care. Chandrika voiced understanding and thanked this social work professor. Telephone call to Jenn Melendez. Jenn reports to have open beds. Clinical information faxed. Transfer form initiated. Proposed discharge date: 03/09/2022 PLAN: Discharge to [facility] pending acceptance under intermediate level of care. Luis MARCIAL, PILY
[2022-03-06 15:10] VITALS: BP 139/68; PULSE 86; RESP 16; TEMP 35.9; O2SAT 96
--- NOTE | 2022-03-06 15:22 | CASEMGMT ---
Social Work Telephone call from Danae Melendez. Patient has been accepted. Danae to call family about private pay. Danae aware of discharge on 03/09/2022. Telephone call to patient son, Chandrika. No answer. Voicemail left. This social media executive updated patient on above information, patient voiced understanding and agreeable. Proposed discharge date: 03/09/2022 PLAN: [facility], intermediate level of care. Luis MARCIAL, PILY
[2022-03-06 17:29] VITALS: PULSE 87
[2022-03-06] MEDS: Tamsulosin HCl 0.4 MG Capsule PO (17:30)
[2022-03-07] MEDS: Acetaminophen 500 MG Tablet 1000 MG PO ×3 (05:51→19:44)
[2022-03-07 05:52] VITALS: BP 110/54; PULSE 89
[2022-03-07] MEDS: Metoprolol Tartrate 25 MG Tablet PO ×2 (05:52→17:24)
[2022-03-07] MEDS: Polyethylene Glycol 3350 17 GM PACKET PO (05:52)
[2022-03-07] MEDS: Senna/Docusate Sodium 1 Tablet 2 TABLET PO ×2 (05:52→17:24)
[2022-03-07] MEDS: Enoxaparin 40 MG/0.4 ML Syringe SC (05:53)
[2022-03-07] MEDS: oxyCODONE 5 MG Tablet PO (08:39)
--- NOTE | 2022-03-07 08:45 | NURSING ---
THIS NURSE INTO ROOM AND NOTICED PT HEAD HAD AREAS OF SMALL AMOUNT OF BLEEDING. PT JUST HAD A EEG DONE. 12 AREAS IN ALL. AREAS CLEANED. RN AWARE.
--- NOTE | 2022-03-07 13:06 | CASEMGMT ---
Addendum entered by Paola Clarke 03/08/22 12:53: Spoke with son and updated him [facility] and [facility] can accept pt. Son agreeable. [facility] has appt scheduled for 03/13 then [facility] can schedule SOC. Addendum entered by Paola Clarke 03/07/22 13:28: SW noted pt does not have a PCP list. Contacted son and son confirmed pt does not have PCP. SW informed son on [facility] that provides services in the home. Son agreeable to those services. SW made referral to Mitzi at [facility] via phone and email. Original Note: Social Work Received call from [facility] confirmed acceptance of pt DC 03/09. SW contacted son to confirm as well. Son expressed family thinking of taking pt home with their assistance. SW explained that is an option, but is not the recommendation from the IDT since pt is x2 assist, dependent for toileting and needing 24/7 care. Son expressed understanding and will review with family and notify SW of final decision. Received call from son stating family is choosing to take pt home understanding of the care level needed and requesting [facility]. Pt is located in [facility] - offered to contact [facility] agencies in that area and provide the accepting options to son to choose. Son agreeable as he has no preference. Inquired about DME needs. Son denied. SW to schedule cot transport for DC home through [facility]. Son requesting 1700 picker and sorter load and unload. Son appreciative. IDT updated. Cot transport scheduled. Referral made to several [facility] agencies. Will continue to follow. Plan: DC home 03/09 with 24/7 care from family, C PT/OT/ST/SN/[facility]/ANIKET SantosW
[2022-03-07 13:58] VITALS: BP 123/56; PULSE 97; RESP 18; TEMP 36.4; O2SAT 96
[2022-03-07 17:24] VITALS: BP 123/56; PULSE 97
[2022-03-07] MEDS: Tamsulosin HCl 0.4 MG Capsule PO (17:24)
[2022-03-07 19:35] VITALS: PULSE 79; RESP 16; O2SAT 97
[2022-03-08 05:53] LABS: Absolute Lymphocyte Count 1.47 X10^3/uL (0.83-4.51); Absolute Neutrophil Count 5.5 X10^3/uL (2.0-7.7); Basophil# 0.07 X10^3/uL; Basophil% 0.9 % (0-1); Eosinophil# 0.13 X10^3/uL; Eosinophils% 1.7 % (0-5); Hematocrit 36.7 % (40-54); Hemoglobin 12.1 g/dL (13.0-16.5); Lymphocyte # 1.47 X10^3/ul (0.83-4.51); Lymphocyte % 18.8 % (19-41); Mean Corpuscular Hgb 31.6 pg (27.0-32.0); Mean Corpuscular Volume 95.8 fL (80-94); Monocyte# 0.58 X10^3/uL; Monocyte% 7.4 % (0-10); NRBC Flagged by Analyzer 0 % (0-5); Neutrophil # 5.51 X10^3/uL (2.7-7.7); Neutrophil % 70.3 % (47-70); Platelet Count 528 K/mm3 (150-450); RBC Distribution Width CV 13.7 % (11.6-14.6); RBC Distribution Width SD 48.3 fl (35.1-43.9); Red Blood Count 3.83 M/mm3 (4.6-6.2); White Blood Count 7.8 K/mm3 (4.4-11.0)
[2022-03-08 05:57] VITALS: BP 161/74; PULSE 88
[2022-03-08] MEDS: Senna/Docusate Sodium 1 Tablet 2 TABLET PO ×2 (05:57→18:07)
[2022-03-08] MEDS: Metoprolol Tartrate 25 MG Tablet PO ×2 (05:57→18:07)
[2022-03-08] MEDS: Polyethylene Glycol 3350 17 GM PACKET PO (05:58)
[2022-03-08] MEDS: Acetaminophen 500 MG Tablet 1000 MG PO ×3 (05:58→21:58)
[2022-03-08] MEDS: Enoxaparin 40 MG/0.4 ML Syringe SC (05:58)
[2022-03-08] MEDS: oxyCODONE 5 MG Tablet PO ×2 (06:06→18:10)
[2022-03-08 06:23] LABS: Anion Gap 2 (5-15); BUN 16 mg/dL (7-18); BUN/Creat Ratio 23.2 RATIO (10-20); Calcium,Total 8.7 mg/dL (8.5-10.1); Chloride 99 mmol/L (98-107); Creatinine, Serum 0.69 mg/dL (0.70-1.30); EST Glomerular Filtration Rate 116 mL/min (>60); Est Glom Filt Rate - Afr Amer 140 mL/min (>60); Estimated Creatinine Clearance 48.58 ml/min; Glucose 105 mg/dL (74-106); Potassium 4.3 mmol/L (3.5-5.1); Sodium Level 133 mmol/L (136-145)
--- NOTE | 2022-03-08 08:16 | DS.PCM_ITS ---
Providers Date of Admission: 02/21/22 Primary Care Physician: No Primary Care Phys Reason For Visit: L. 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 * Debility - PT/OT. * Pain - Tylenol 1000mg q6h prn pain (1-5), Oxycodone 5mg q4h prn pain (6-10). * Bowel - Miralax 17gm daily, Senna/colace 2 tablets bid, Dulcolax 10mg daily prn. * Adult immunization - Administer pneumonia vaccine, covid19 vaccine, flu vaccine as appropriate. * DVT prophylaxis - Lovenox 40mg sc daily. * Insomnia - Melatonin 3mg qhs prn. * Hypertension - Metoprolol 25mg bid. Medications at Discharge Home Medications acetaminophen 500 mg tablet 1,000 mg PO Q8 #0 tabs 03/08/22 metoprolol tartrate 25 mg tablet 25 mg PO BID BP 30 days #60 tabs 03/08/22 oxycodone 5 mg tablet 5 mg PO Q4H PRN PRN Pain Score 6-10 3 days #18 tabs 03/08/22 sennosides 8.6 mg-docusate sodium 50 mg tablet (Stool Softener-Stimulant Laxa tive) 2 tab PO BID #0 tabs 03/08/22 tamsulosin 0.4 mg capsule 0.4 mg PO DAILY@1730 30 days #30 caps 03/08/22 Hospital Course Operations None Procedures Electroencephalogram (Mild diffuse encephalopathy.) Summary of Care Provided Minutes Spent on Discharge: 35 Hospital Course: 86 year old male with below past medical history hospitalized for nondisplaced left greater trochanteric fracture, no surgery recommended, complicated by collin vated blood pressure, admitted to TCU with debility, here for rehabilitation, strengthening, prior to discharge home with family. Discharge home 03/09/2022 with 19/02 care from family, Home Health Care PT/OT/ST/SN/KENDALL/SW. Physical Exam Const alert General Appearance: cooperative HEENT normocephalic Eyes PERRL and EOMs intact bilaterally Neck supple, no JVD and no carotid bruits Resp normal respiratory effort, normal air movement and clear to auscultation bilaterally Cardio regular rate and regular rhythm GI normal to inspection, nondistended, normoactive bowel sounds, non-tender and non-distended Extremity normal capillary refill General Extremity: Negative for edema Skin no rashes or lesions noted General Skin Exam: no breakdown Psych affect normal Appearance: appropriate Weight / BMI Weight Weight: 63.594 kg Body Mass Index (BMI) 20.8 ABG / Lab / Microbiology Data Result Diagrams: 03/08/22 05:20 03/08/22 05:20 Laboratory: Laboratory Results - last 24 hr 03/08/22 05:20: WBC 7.8, RBC 3.83 L, Hgb 12.1 L, Hct 36.7 L, MCV 95.8 H, MCH 31.6, MCHC 33.0, RDW Std Deviation 48.3 H, RDW Coeff of Krunal 13.7, Plt Count 528 H, MPV 9.0, Immature Gran % (Auto) 0.900, Neut % (Auto) 70.3 H, Lymph % (Auto) 18.8 L, Beadle % (Auto) 7.4, Eos % (Auto) 1.7, Baso % (Auto) 0.9, Absolute Neuts (auto) 5.5, Absolute Lymphs (auto) 1.47, Nucleated RBC % 0 03/08/22 05:20: Sodium 133 L, Potassium 4.3, Chloride 99, Carbon Dioxide 32.0, Anion Gap 2 L, BUN 16, Creatinine 0.69 L, Estim Creat Clear Calc 48.58, Est GFR (MDRD) Af Amer 140, Est GFR (MDRD) Non-Af 116, BUN/Creatinine Ratio 23.2 H, Glucose 105, Calcium 8.7 Microbiology: Microbiology 03/04/22 13:01 Urine Catheter - Aggarwal Urine Culture - Final Enterococcus faecalis 03/02/22 08:15 Nasal Secretion SARS-CoV-2 Antigen (Rapid) - Final 02/28/22 04:50 Nasal Secretion SARS-CoV-2 Antigen (Rapid) - Final D/C Instructions Discharge Diet: No restrictions Discharge Activity: Return to Normal Activity, May Shower and Use Walker Weight Bearing Status: Weight bearing as tolerated Call your doctor if you observe: Fever of 101 or Higher, Inability to urinate, Inability to have a bowel movement, Shortness of breath, Dizziness, Fainting spells, Swelling in the ankles, Chest pain and Uncontrolled pain Additional Instructions: Discharge home 03/09/2022 with 24/7 care from family, Home Health Care PT/OT/ST/SN/KENDALL/SW. Meaningful Use Info Meaningful Use Diagnoses (Choose all that apply): None applicable Discharge Plan Admission Admit Date/Time: 02/21/22 16:50 Primary Reason for Your Visit: Debility. Attending Provider: Santy Montemayor Chi Primary Care Provider: Care Physician,No Primary Instructions Additional Instructions / Restrictions: Discharge home 03/09/2022 with 24/7 care from family, Home Health Care PT/OT/ST/SN/KENDALL/SW. Discharge Orders/Prescriptions Prescriptions: New acetaminophen 500 mg Tablet 1,000 mg PO Q8 Qty: 0 0RF sennosides-docusate sodium [Stool Softener-Stimulant Laxat] 8.6-50 mg Tablet 2 tab PO BID Qty: 0 0RF tamsulosin 0.4 mg Capsule 0.4 mg PO DAILY@1730 30 Days Qty: 30 0RF Continued oxycodone 5 mg tablet 5 mg PO Q4H PRN PRN (Reason: Pain Score 6-10) 3 Days Qty: 18 0RF metoprolol tartrate 25 mg tablet 25 mg PO BID 30 Days Qty: 60 0RF Discontinued sennosides-docusate sodium [Stool Softener-Stimulant Laxat] 8.6-50 mg Tablet 2 tab PO BID PRN PRN (Reason: Constipation) Qty: 0 0RF melatonin 3 mg Tablet 3 mg PO QHS PRN PRN (Reason: Insomnia) Qty: 0 0RF acetaminophen [Tylenol] 325 mg tablet 650 mg PO Q6H PRN PRN (Reason: Pain Score 1-5/Temp > 100.7 F) enoxaparin 40 mg/0.4 mL syringe 40 mg subcut DAILY Referrals / Follow Up: Care Physician,No Primary [Primary Care Provider] - Disposition Disposition (needs filled in before D/C Order can be placed): Home Health Service
[2022-03-08 10:10] VITALS: PULSE 98; RESP 18; O2SAT 97
[2022-03-08 15:22] VITALS: BP 143/73; PULSE 95; RESP 17; TEMP 36.2; O2SAT 96
[2022-03-08 18:07] VITALS: BP 143/73; PULSE 95
[2022-03-08] MEDS: Tamsulosin HCl 0.4 MG Capsule PO (18:07)
[2022-03-09] MEDS: Acetaminophen 500 MG Tablet 1000 MG PO ×2 (05:22→13:37)
[2022-03-09] MEDS: Polyethylene Glycol 3350 17 GM PACKET PO (05:22)
[2022-03-09] MEDS: Senna/Docusate Sodium 1 Tablet 2 TABLET PO (05:23)
[2022-03-09 05:24] VITALS: BP 115/62; PULSE 67
[2022-03-09] MEDS: Metoprolol Tartrate 25 MG Tablet PO (05:24)
[2022-03-09] MEDS: Enoxaparin 40 MG/0.4 ML Syringe SC (05:24)
[2022-03-09 10:06] VITALS: PULSE 96; O2SAT 93
--- NOTE | 2022-03-09 13:14 | CASEMGMT ---
Social Work BIMS (05/13) and PHQ-9 (09/25) completed for MDS assessment. Paola Clarke MSW REGULATORY SCIENTIST
[2022-03-09 14:39] VITALS: BP 138/65; PULSE 89; RESP 14; TEMP 37.4; O2SAT 97
[2022-03-09 14:58] VITALS: BP 138/65; PULSE 89; RESP 14; TEMP 37.4; O2SAT 97
--- NOTE | 2022-03-09 16:00 | NURSING ---
Dr. Montemayor updated on pt unable to void last bladder scan 387. New order to reinsert Aggarwal and follow up with Urology.
--- NOTE | 2022-03-09 16:10 | NURSING ---
Per Dr. Montemayor pt should follow up with a urologist. Information added to discharge instructions.
--- NOTE | 2022-03-09 16:39 | NURSING ---
Called [facility] and went over discharge insturctions
--- NOTE | 2022-03-16 11:16 | NURSING ---
Supervisor Laboratory Note: Initial activity assessment completed on paper by interim activity assessment.
== END 2022-03-09 16:20 | disposition home health service (06) | DRG 560 ==
PROVIDERS: Internal Medicine; Admitting Provider Family Medicine Geriatric Medicine; Visit Provider Family Medicine Geriatric Medicine
DX: S72.002D Fracture of unspecified part of neck of left femur, subsequent encounter for closed fracture with routine healing (principal); N39.0 Urinary tract infection, site not specified; B95.2 Enterococcus as the cause of diseases classified elsewhere; F03.90 Unspecified dementia, unspecified severity, without behavioral disturbance, psychotic disturbance, mood disturbance, and anxiety; G40.A09 Absence epileptic syndrome, not intractable, without status epilepticus; D50.9 Iron deficiency anemia, unspecified; M19.90 Unspecified osteoarthritis, unspecified site; I10 Essential (primary) hypertension; W19.XXXD Unspecified fall, subsequent encounter; Z79.01 Long term (current) use of anticoagulants; Z79.899 Other long term (current) drug therapy
CPT/HCPCS: 36415; 80048; 81001; 85025; 87077; 87086; 87088; 87186; 87426; 87811; 92523; 95819; 97110; 97116; 97162; 97166; 97530; 97535; 97802; A4216

== ENCOUNTER → 2022-03-03 | Outpatient (CLI) | payer MEDICARE, SELFPAY ==
--- NOTE | 2022-03-03 12:48 | CT_ITS ---
INDICATION: TRAUMA, NEW ONSET SEIZURE EXAMINATION: CT BRAIN - CT Head or Brain W/O Contrast Injection TECHNIQUE: Multiple axial images were obtained of the head without intravenous contrast. A radiation dose optimization technique was used for this scan. IV Contrast dosage and agent: None. COMPARISON: None. FINDINGS: Areas of low attenuation are visualized in the periventricular and subcortical white matter suggestive of chronic microvascular disease, no evidence of acute territorial infarct is visualized. No evidence of parenchymal hemorrhages or contusions is seen. No evidence of intra or extra-axial fluid collection is visualized. Prominence of the ventricles and sulci visualized suggestive of chronic atrophic brain changes. Basal cisterns are unremarkable. No evidence of intracranial mass or mass effect, no evidence of midline shift is seen. Left frontal percutaneous scalp soft tissue swelling seen, no involvement of the left preseptal space is seen. Circumferential opacification of the ethmoid air cells visualized during the right anterior ethmoid air cells. Infiltrate is visualized most prominent involving the right maxillary medial incisor. ORBITS: Both globes, extraocular muscles, optic nerves and retrobulbar fat appear unremarkable. CT/Brain/Head without Contrast IMPRESSION: Chronic microvascular disease and chronic atrophic brain changes. No evidence of acute intracranial pathology is seen. Electronically Signed: Dane Rodriguez MD at 13:21 EDT ,
== END | disposition home or self-care (01) ==
LOC: CT 12:40
PROVIDERS: Referring Provider Internal Medicine; Visit Provider Internal Medicine
DX: S09.90XA Unspecified injury of head, initial encounter (principal); G40.009 Localization-related (focal) (partial) idiopathic epilepsy and epileptic syndromes with seizures of localized onset, not intractable, without status epilepticus
CPT/HCPCS: 70450

== ENCOUNTER 2024-12-20 12:43 | Emergency (ER) | payer MEDICARE, SELFPAY ==
[2024-12-20 12:43] VITALS: BP 188/80; PULSE 61; RESP 16; TEMP 36.4; O2SAT 98
--- NOTE | 2024-12-20 13:46 | ED.VIS.FALL ---
HPI HPI - Fall History of Present Illness Chief Complaint: Fall Informant: patient and family (Son at bedside.) Occured/Mechanism Occurred: Today and Hours Mechanism/Context: Yes same level fall Usually ambulates: Without assistance Pain/Injury Pain Location: face Quality of Pain: Sharp Current Severity: Mild Maximum Severity: Mild Associated Symptoms Associated Symptoms: Negative for Parasthesias, Weakness, Loss of function, Inability to ambulate, Loss of consciousness or Amnesia Narrative Narrative: 89-year-old male brought in by his son. Today was the only side his bed was getting dressed lost his balance fell struck his face on the nightstand causing laceration to bridge of his nose. This occurred around 8 AM this morning. He could not get the bleeding to stop and brought him in. He denies any headache. He denies any LOC. Denies being on any blood thinners. Denies any other injuries other than the bridge of his nose and face. No vomiting. Son states this is his baseline. Tetanus Immunization: >10 years Prior similar symptoms: No Recent Illness/Hospitalization: No PFSH PFSH Medical History Microcytic anemia Osteoarthritis Home Medications ?Medication ?Instructions ?Recorded ?Last Taken ?Type acetaminophen 500 mg tablet 1,000 mg (2 x 500 mg) PO Q8 #0 tabs 03/08/22 Unknown Rx metoprolol tartrate 25 mg tablet 25 mg PO BID BP 30 days #60 tabs 03/08/22 Unknown Rx oxycodone 5 mg tablet 5 mg PO Q4H PRN PRN Pain Score 03/08/22 Unknown Rx 6-10 3 days #18 tabs sennosides 8.6 mg-docusate sodium 2 tab PO BID #0 tabs 03/08/22 Unknown Rx 50 mg tablet (Stool Softener-Stimulant Laxative) tamsulosin 0.4 mg capsule 0.4 mg PO DAILY@1730 30 days #30 03/08/22 Unknown Rx caps Allergy/AdvReac Type Severity Reaction Status Date / Time No Known Allergies Allergy Verified 10/08/13 23:26 Family History Other Heart disease Surgical History History of prostate surgery H/O hernia repair Social History household members: family Smoking Status: Never smoker alcohol intake: never substance use type: does not use ROS ROS ED ROS Narrative Denies recent illness. Constitutional Constitutional ED: Denies chills or fever(s) Eyes Eyes: Denies blurry vision ENT ENT ED: Denies ear pain Cardiovascular Cardiovascular: Denies chest pain Respiratory/Chest Respiratory/Chest: Denies cough or dyspnea Gastrointestinal Gastrointestinal: Denies abdominal pain Genitourinary Genitourinary ED: Denies dysuria or hematuria Musculoskeletal Musculoskeletal: Denies arthralgias or back pain Integumentary Denies abscess Neurologic Neurologic: Denies headache(s) Psychiatric Psychiatric: Denies anxiety Endocrine Endocrinology: Denies polydipsia or polyphagia Hematologic/Lymphatic Hematologic/Lymphatic: Denies easy bleeding, easy bruising or lymphadenopathy Allergic/Immunologic Allergic/Immunologic ED: Denies mouth swelling, tongue swelling or urticaria EXAM Physical Exam Narrative Exam Narrative: 89-year-old male lying in bed. Sitting upright. Son at bedside. Holding pressure on the bridge of his nose. Vital signs are stable afebrile. Pulse ox 90% on room air no hypoxia. He is in no distress. H EENT exam pupils round reactive light. Active motions are intact. Pupils are about 2 to 3 mm bilaterally. Has a laceration about an inch on the bridge of his nose its vertical. He also has bruising on the bridge of his nose tenderness and also periorbital bruising bilaterally. Patient has poor dentition but there is no acute trauma to his dentition. He has multiple missing teeth and cavities. Scalp is nontender no hematoma. C-spine and trachea are nontender no neck tenderness. Back nontender no signs of trauma. Lungs clear to auscultation bilaterally. Heart regular rhythm rate about 60 no murmur. Chest wall ribs are nontender. Abdomen soft nontender. No bruising. Pelvic girdle intact. Moving all 4 extremities. Normal cane stripper strength. Normal dorsi plantarflexion. No tenderness or deformity either upper or lower extremities. Normal range of motion. Neurologically is awake alert. Answer questions following commands. Const Vital Signs: 12/20/24 12:43 12/20/24 13:04 12/20/24 14:45 Temperature 97.6 F L Temperature Source Temporal Pulse Rate 61 66 Respiratory Rate 16 16 Respiratory Effort Normal Respiratory Depth Normal Respiratory Pattern Normal Blood Pressure 188/80 H 172/86 H Blood Pressure Mean 116 114 Pulse Ox 98 97 Oxygen Delivery Method Room Air Room Air Positive well nourished and well developed; Negative for cachectic or contractures General Appearance ED: well developed and NAD; Negative for cachectic or contractures Nutritional Appearance: Negative for cachectic HEENT Reports normocephalic HEENT Narrative: Laceration to the bridge of his nose. About an inch vertical. Mild oozing of blood. Bruising. To the proximal aspect of his nose and periorbital bilaterally. Scalp is nontender no hematoma. Pupils round reactive light. trauma and tenderness; Negative for atraumatic Eyes PERRL and EOMs intact bilaterally Neck full ROM, no lymphadenopathy and supple General: Negative for tenderness Chest Wall inspection of chest normal and palpation of chest normal Resp normal respiratory effort, no retractions and clear to auscultation bilaterally Effort and Inspection: Negative for pain with movement Auscultation: Negative for rales, rhonchi or wheezes Cardio regular rate, regular rhythm, S1 normal heart sound, S2 normal heart sound and no murmurs Rate: Negative for bradycardia or tachycardic Rhythm: Negative for abnormal rhythm GI non-tender, non-distended and no masses Palpation: soft; Negative for rebound tenderness present Back/Spine no CVA tenderness General Back: Negative for CVA tenderness Cervical Spine: Negative for cervical spine tenderness Lumbar Spine / Lower Back: Negative for lumbar spinal tenderness Neuro oriented x3, CN's II-XII intact bilaterally, moves all extremities and no focal motor deficits [place] Coma Scale: document GCS findings Spontaneous Obeys Commands Oriented 15 Sensorium / Orientation: alert, oriented to person, oriented to place and oriented to time; Negative for orientation impaired or confused Motor Exam: strength 5/5 throughout Psych mental status grossly normal and thought process normal Skin Skin Narrative: Nasal bridge laceration. Bruising. Lesions: no lesions Rashes: no rashes Trauma: laceration MDM MDM MDM Narrative Medical decision making narrative: 89-year-old male fell at home as a nasal bridge laceration need to be repaired. Tetanus needs updated. I am obtaining CAT scan of his brain and facial bones to rule out other fractures or suspect a nasal fracture. Rule out traumatic brain injury or intracranial bleed. He did not want any thing for pain. Repeat exam patient doing well at 3:50 PM after is done suturing up his nasal laceration. We discussed his CAT scans. His nasal fracture. And follow-up. Stitches out in a week. His son was at bedside understands the discharge instructions. We discharged to home. History & Record Review Discussion w/independent historian: Patient and Family Additional record(s) reviewed:: Prior inpatient record, Prior outpatient record, Prior ED visit and Prior labs Radiography Diagnostic Testing: Clinical Impression(s) from Imaging Studies Brain CT 12/20/24 14:00 IMPRESSION: 1. No acute intracranial finding. 2. Findings of chronic microvascular ischemic changes and age-related changes. Reading Location: [id number] Facial/Sinus 12/20/24 14:00 IMPRESSION: No CT evidence of acute maxillofacial fracture. Reading Location: [facility] Procedures Lacerations Nasal bridge laceration repair:: Length: 1 in Depth: Sub Q Shape: Linear Prep: Shricardo-Cledmitry Laceration repair: Irrigated, Lidocaine with epi, Local, Skin sutures and Wound explored Number of Sutures/[place]: 3 Suture Information: Ethilon, Simple and 5-0 Comment: Proximal nasal bridge laceration. Approximately 1 inch. Local anesthetized with lidocaine with epinephrine. Cleaned with Carri-Barbra. Washed and irrigated with saline. Explored. Closed using 3 simple erupted 5-0 Ethilon suture. Proper hemostasis and wound closure was obtained. Patient tolerated procedure well. They are instructed on wound care. Discharge Plan Triage Chief Complaint: Fall ED Provider: Linus Silva Dx/Rx/DC Orders Clinical Impression: Fall, Facial trauma, Closed head injury, Fracture of nasal bone, Facial laceration Instructions: ED Head Injury (Adult), ED Laceration, All Closures Prescriptions: No Action acetaminophen 500 mg Tablet 1,000 mg PO Q8 Qty: 0 0RF sennosides-docusate sodium [Stool Softener-Stimulant Laxat] 8.6-50 mg Tablet 2 tab PO BID Qty: 0 0RF tamsulosin 0.4 mg Capsule 0.4 mg PO DAILY@1730 30 Days Qty: 30 0RF oxycodone 5 mg tablet 5 mg PO Q4H PRN PRN (Reason: Pain Score 6-10) 3 Days Qty: 18 0RF metoprolol tartrate 25 mg tablet 25 mg PO BID 30 Days Qty: 60 0RF Primary Care Provider: Kim Umaña Referrals: Kim Umaña MD [Primary Care Provider] - 7 Days for suture removal Activity Restrictions/Additional Instructions: Ice to the face to decrease pain and swelling. Tylenol for pain. Stitches out in 7 days. If he starts having severe headaches, vomiting or not acting right return. Clean wound daily with soap and water. Apply antibiotic ointment. Print Language: Armenian Disposition Disposition: Home, Self Care
--- NOTE | 2024-12-20 14:00 | CT_ITS ---
EXAM: SINUS/FACIAL BONE CLINICAL HISTORY: FACIAL TRAUMA COMPARISON: None. TECHNIQUE: Helical CT of the facial bones without IV contrast. Reformatted images are included for review. Dose reduction techniques were used including intermediate exposure control (AEC),iterative reconstruction technique, and/or mA and/or KV dose adjustments based on patient's size. FINDINGS: There is no linear lucency, cortical irregularity or bony deformity to suggest acute displaced fracture. The bilateral orbits, nasal bones, temporomandibular joints, pterygoid plates and zygomatic arches are symmetrically intact. The mandible is grossly intact. There are a few opacified right ethmoid air cells, and mild mucosal thickening of the right frontal sinus. Trace right mastoid effusion. The visualized paranasal sinuses are otherwise unremarkable. No visualized hematoma or large laceration. Numerous carious teeth with prior dental amalgams. Partially visualized cervical spondylosis. CT/Sinus/Facial Bone IMPRESSION: No CT evidence of acute maxillofacial fracture. Reading Location: [id number]
--- NOTE | 2024-12-20 14:00 | CT_ITS ---
EXAM: BRAIN/HEAD WITHOUT CONTRAST CLINICAL HISTORY: 89 y/o M with HEAD TRAUMA. COMPARISON: None. TECHNIQUE: Routine CT imaging of the head without IV contrast. Additional multiplanar reformats were obtained. Dose reduction techniques were used including intermediate exposure control (AEC),iterative reconstruction technique, and/or mA and/or KV dose adjustments based on patient's size. FINDINGS: Moderate generalized cerebral volume loss with concordant prominence of the ventricles and subarachnoid spaces. No acute intracranial hemorrhage or herniation. Moderate patchy supratentorial white matter hypodensities. The cuevas-white matter interfaces are otherwise maintained. Mild mucosal thickening of a few right ethmoid air cells. The orbits, visualized paranasal sinuses and mastoids are otherwise unremarkable. No acute calvarial fracture or scalp hematoma.. CT/Brain/Head without Contrast IMPRESSION: 1. No acute intracranial finding. 2. Findings of chronic microvascular ischemic changes and age-related changes. Reading Location: [id number]
[2024-12-20] MEDS: Lidocaine 1% /Epi 1:100 (20ml) 20 ML Vial 10 ML INFILT (14:03)
[2024-12-20] MEDS: Diphth,Pertuss(Acell),Tet Vac 0.5 ML Vial IM (14:05)
[2024-12-20 14:45] VITALS: BP 172/86; PULSE 66; RESP 16; O2SAT 97
[2024-12-20 16:00] VITALS: BP 128/98; PULSE 70; RESP 18; O2SAT 98
[2024-12-20 16:08] VITALS: BP 128/98; PULSE 70; RESP 18; TEMP 37; O2SAT 98
== END 2024-12-20 16:09 | disposition home or self-care (01) ==
PROVIDERS: Emergency Provider Emergency Medicine; PCP Internal Medicine; Visit Provider Emergency Medicine
DX: S01.21XA Laceration without foreign body of nose, initial encounter (principal); S02.2XXA Fracture of nasal bones, initial encounter for closed fracture; W18.30XA Fall on same level, unspecified, initial encounter; Y92.009 Unspecified place in unspecified non-institutional (private) residence as the place of occurrence of the external cause; Z79.899 Other long term (current) drug therapy
CPT/HCPCS: 12011; 70450; 70486; 90715; 99283